=== PATIENT | male | born 1950 | race African-American/Black ===

== ENCOUNTER 2018-01-29 20:43 | Inpatient (IN) | payer MEDICARE, OTHER ==
[~2018-01-29] VITALS: Ht 172.7 cm; Wt 63.7 kg
[2018-01-29] MEDS ORDERED: METHYLPREDNISOLONE SOD SUCC 125 MG/2 ML VIAL IV STA (21:20)
[2018-01-29] MEDS ORDERED: IPRATROPIUM/ALBUTEROL 0.5-3(2.5)MG/3ML NEB HHN ONE (21:30)
[2018-01-29] MEDS ORDERED: LEVOFLOXACIN 750MG PREMIX 150 ML IV ONE (21:30)
[2018-01-29 21:42] LABS: BASOPHILS % 1.5 % (0.0-2.0); EOSINOPHILS % 4.2 % (0.0-5.0); HEMATOCRIT. 32.4 % (42.0-52.0); HEMOGLOBIN. 10.7 g/dL (14.0-18.0); LYMPHOCYTES % 19.8 % (20.0-50.0); MEAN CORPUSCULAR HEMOGLOBIN 27.1 pg (28.0-32.0); MEAN CORPUSCULAR VOLUME 82.2 fL (80.0-94.0); MEAN PLATELET VOLUME 7.6 fl (7.4-10.4); MONOCYTES % 9.2 % (2.0-8.0); NEUTROPHILS % 65.3 % (40.0-76.0); PLATELET 288 x1000/uL (130-400); RED BLOOD CELL COUNT 3.94 mill/uL (4.7-6.1); RED CELL DISTRIBUTION WIDTH 17.3 % (11.6-14.6)
[2018-01-29] MEDS ORDERED: SODIUM CHLORIDE 0.9% 500 ML IV ONE (21:42)
[2018-01-29 21:49] LABS: CHLORIDE 107 mEq/L (98-107)
[2018-01-29 21:54] LABS: AMMONIA 21 uMol/L (<32)
[2018-01-29 21:56] LABS: INR 1.1; PARTIAL THROMBOPLASTIN TIME 26.1 sec (23.4-31.0); PROTHROMBIN TIME 10.9 sec (9.4-11.6)
[2018-01-29 21:57] LABS: CREATINE KINASE 200 IU/L (39-308)
[2018-01-29] MEDS ORDERED: SODIUM BICARBONATE 8.4% 1 MEQ/ML 50ML SYR IV ONE (22:15)
[2018-01-29] MEDS ORDERED: SODIUM POLYSTYRENE SULFONATE 15 G/60 ML BOT PO ONE (22:15)
[2018-01-29] MEDS ORDERED: CALCIUM CHLORIDE 1GM/10ML SYR IV ONE (22:15)
[2018-01-30] VITALS (9 sets, daily range): BP systolic 131–193; BP diastolic 74–103
[2018-01-30] MEDS ORDERED: MAGNESIUM/ALUMINUM HYDROXIDE/SIMETHICONE 30ML UDC PO PRN (00:45)
[2018-01-30] MEDS ORDERED: ACETAMINOPHEN 650MG SUPP PR PRN (00:45)
[2018-01-30] MEDS ORDERED: ONDANSETRON HCL 4MG/2ML VIAL IV PRN (00:45)
[2018-01-30] MEDS ORDERED: HYDROCODONE/ACETAMINOPHEN 5/325MG TABLET PO PRN (00:45)
[2018-01-30] MEDS ORDERED: DIPHENHYDRAMINE 50MG/ML VIAL IV PRN (00:45)
[2018-01-30] MEDS ORDERED: IPRATROPIUM/ALBUTEROL 0.5-3(2.5)MG/3ML NEB INH PRN (00:45)
[2018-01-30] MEDS ORDERED: ACETAMINOPHEN 325MG TABLET PO PRN (00:45)
[2018-01-30] MEDS ORDERED: ACETAMINOPHEN 650MG/20.3ML UDC GT PRN (00:45)
[2018-01-30] MEDS ORDERED: DOCUSATE SODIUM 100MG CAPSULE PO PRN (00:45)
[2018-01-30] MEDS ORDERED: GUAIFENESIN 200MG/10ML SUGAR FREE UDC PO PRN (00:45)
[2018-01-30 06:02] LABS: CLARITY URINE CLEAR (CLEAR); COLOR URINE YELLOW (YELLOW); KETONES URINE NEGATIVE (NEGATIVE); LEUKOCYTE ESTERASE URINE NEGATIVE (NEGATIVE); NITRITE URINE NEGATIVE (NEGATIVE); OCCULT BLOOD URINE NEGATIVE (NEGATIVE); PH URINE 5.5 (4.5-8.0); PROTEIN URINE 3+ (NEGATIVE); SPECIFIC GRAVITY URINE 1.012 (1.005-1.030); UROBILINOGEN URINE 0.2 E.U./dL (0.2-1.0)
[2018-01-30 06:28] LABS: *AMPHETAMINES SCREEN URINE NEGATIVE (NEGATIVE); *BARBITURATES SCREEN URINE NEGATIVE (NEGATIVE); *BENZODIAZEPINES SCREEN URINE NEGATIVE (NEGATIVE); *COCAINE SCREEN URINE NEGATIVE (NEGATIVE); CANNABINOID URINE SCREEN PRESUMTIVE POSITIVE (NEGATIVE); METHADONE URINE SCREEN NEGATIVE (NEGATIVE); OPIATES URINE SCREEN NEGATIVE (NEGATIVE); PHENCYCLIDINE URINE SCREEN NEGATIVE (NEGATIVE)
[2018-01-30] MEDS ORDERED: AMLODIPINE 10MG TABLET PO SCH (09:00)
[2018-01-30 12:14] LABS: HEMATOCRIT. 33.7 % (42.0-52.0); MEAN CORPUSCULAR HEMOGLOBIN 27.1 pg (28.0-32.0); MEAN CORPUSCULAR VOLUME 82.8 fL (80.0-94.0); MEAN PLATELET VOLUME 8.2 fl (7.4-10.4); PLATELET 269 x1000/uL (130-400); RED BLOOD CELL COUNT 4.07 mill/uL (4.7-6.1); RED CELL DISTRIBUTION WIDTH 17.4 % (11.6-14.6)
[2018-01-30 12:19] LABS: CHLORIDE 108 mEq/L (98-107)
[2018-01-30 12:27] LABS: CREATINE KINASE 156 IU/L (39-308)
[2018-01-30 12:29] LABS: CREATINE KINASE MB FRACTION 1.8 ng/mL (0.5-3.6)
[2018-01-30 12:47] LABS: PLATELET ESTIMATE NORMAL
[2018-01-30] MEDS ORDERED: PNEUMOCOCCAL 23-VAL P-SAC VAC 0.5 ML IM ONE (14:15)
[2018-01-30 14:56] LABS: CREATINE KINASE 148 IU/L (39-308)
[2018-01-30 14:57] LABS: CREATINE KINASE MB FRACTION 1.7 ng/mL (0.5-3.6)
[2018-01-30] MEDS ORDERED: SODIUM BICARBONATE 50 MEQ in SODIUM CHLORIDE 0.45% 1,000 ML IV SCH (16:15)
[2018-01-30] MEDS: ENOXAPARIN 30MG/0.3ML SYR SUBCUT SCH (17:37)
[2018-01-30] MEDS: SODIUM CHLORIDE 0.9% INJ 3ML FLUSH IVF SCH (17:38)
[2018-01-30] MEDS: CLONIDINE 0.1MG TABLET PO PRN (17:41)
[2018-01-30] MEDS ORDERED: AMLODIPINE 10MG TABLET PO NR (20:15)
[2018-01-30] MEDS: HYDRALAZINE HCL 50MG TABLET PO SCH (21:00)
[2018-01-31] VITALS (11 sets, daily range): BP systolic 116–166; BP diastolic 61–92
[2018-01-31] MEDS: CLONIDINE 0.1MG TABLET PO PRN (00:33)
[2018-01-31] MEDS: SODIUM CHLORIDE 0.9% INJ 3ML FLUSH IVF SCH ×3 (00:35→21:38)
[2018-01-31] MEDS: HYDRALAZINE HCL 50MG TABLET PO SCH ×3 (05:22→21:16)
[2018-01-31 06:53] LABS: BASOPHILS % 0.4 % (0.0-2.0); EOSINOPHILS % 0.5 % (0.0-5.0); HEMATOCRIT. 31.2 % (42.0-52.0); HEMOGLOBIN. 10.1 g/dL (14.0-18.0); LYMPHOCYTES % 12.9 % (20.0-50.0); MEAN CORPUSCULAR HEMOGLOBIN 26.8 pg (28.0-32.0); MEAN CORPUSCULAR VOLUME 82.8 fL (80.0-94.0); NEUTROPHILS % 76.2 % (40.0-76.0); RED BLOOD CELL COUNT 3.77 mill/uL (4.7-6.1)
[2018-01-31 07:30] LABS: CHLORIDE 108 mEq/L (98-107)
[2018-01-31 07:37] LABS: LDL CHOLESTEROL 86 mg/dL (5-100)
[2018-01-31 07:39] LABS: HDL CHOLESTEROL 46 mg/dL (40-59)
[2018-01-31] MEDS: ENOXAPARIN 30MG/0.3ML SYR SUBCUT SCH (09:22)
[2018-01-31] MEDS: AMLODIPINE 10MG TABLET PO SCH (09:24)
[2018-01-31 10:36] LABS: HEPATITIS B SURFACE ANTIGEN NEGATIVE
[2018-01-31] MEDS: SODIUM BICARBONATE 50 MEQ in SODIUM CHLORIDE 0.45% 1,000 ML IV SCH (12:15)
[2018-01-31] MEDS ORDERED: AMLO10TA80 PO (14:29)
[2018-01-31] MEDS ORDERED: HYDR-4135 PO (14:29)
[2018-01-31] MEDS ORDERED: LINA5TAB MT (14:31)
[2018-01-31] MEDS: LINAGLIPTIN 5MG TABLET PO SCH (15:27)
[2018-02-01] VITALS (12 sets, daily range): BP systolic 116–164; BP diastolic 65–99
[2018-02-01] MEDS: HYDRALAZINE HCL 50MG TABLET PO SCH ×3 (05:41→22:08)
[2018-02-01] MEDS: SODIUM BICARBONATE 50 MEQ in SODIUM CHLORIDE 0.45% 1,000 ML IV SCH ×2 (05:43→22:08)
[2018-02-01] MEDS: SODIUM CHLORIDE 0.9% INJ 3ML FLUSH IVF SCH ×3 (05:44→22:08)
[2018-02-01] MEDS: CLONIDINE 0.1MG TABLET PO PRN (05:49)
[2018-02-01] MEDS: ENOXAPARIN 30MG/0.3ML SYR SUBCUT SCH (08:46)
[2018-02-01] MEDS: AMLODIPINE 10MG TABLET PO SCH (08:46)
[2018-02-01] MEDS: LINAGLIPTIN 5MG TABLET PO SCH (08:46)
[2018-02-01 12:32] LABS: EOSINOPHILS % 3.6 % (0.0-5.0); HEMATOCRIT. 31.4 % (42.0-52.0); HEMOGLOBIN. 10.2 g/dL (14.0-18.0); LYMPHOCYTES % 21.1 % (20.0-50.0); MEAN CORPUSCULAR HEMOGLOBIN 27.1 pg (28.0-32.0); MEAN CORPUSCULAR VOLUME 83.4 fL (80.0-94.0); MEAN PLATELET VOLUME 8.2 fl (7.4-10.4); MONOCYTES % 9.8 % (2.0-8.0); NEUTROPHILS % 64.5 % (40.0-76.0); PLATELET 189 x1000/uL (130-400); RED BLOOD CELL COUNT 3.76 mill/uL (4.7-6.1); RED CELL DISTRIBUTION WIDTH 17.3 % (11.6-14.6)
[2018-02-01 12:45] LABS: CHLORIDE 105 mEq/L (98-107)
[2018-02-01 15:54] LABS: BG BASE EXCESS -4.6 mmol/L (-2.0-2.0); BG CARBOXYHEMOGLOBIN 0.5 % (0.5-1.5); BG FRACTION INSPIRED OXYGEN 21; BG HCO3 ACT 18.9 mmol/L (22.0-26.0); BG METHEMOGLOBIN 0.2 % (0.0-1.5); BG OXYHEMOGLOBIN 95.3 % (94.0-97.0); BG PCO2 29.8 mmHg (35.0-45.0); BG PO2 87.8 mmHg (75.0-100.0); BG SAMPLE SITE RIGHT BRACHIAL; BG VENT MODE ROOM AIR
[2018-02-02] VITALS (7 sets, daily range): BP systolic 148–169; BP diastolic 87–95
[2018-02-02] MEDS: CLONIDINE 0.1MG TABLET PO PRN (01:53)
[2018-02-02] MEDS: SODIUM CHLORIDE 0.9% INJ 3ML FLUSH IVF SCH (06:41)
[2018-02-02] MEDS: HYDRALAZINE HCL 50MG TABLET PO SCH ×2 (06:41→13:40)
[2018-02-02 06:52] LABS: BASOPHILS % 0.9 % (0.0-2.0); EOSINOPHILS % 5.1 % (0.0-5.0); HEMATOCRIT. 32.3 % (42.0-52.0); HEMOGLOBIN. 10.6 g/dL (14.0-18.0); LYMPHOCYTES % 20.1 % (20.0-50.0); MEAN CORPUSCULAR HEMOGLOBIN 27.1 pg (28.0-32.0); MEAN CORPUSCULAR VOLUME 82.7 fL (80.0-94.0); MEAN PLATELET VOLUME 7.9 fl (7.4-10.4); MONOCYTES % 14.1 % (2.0-8.0); NEUTROPHILS % 59.8 % (40.0-76.0); PLATELET 239 x1000/uL (130-400); RED CELL DISTRIBUTION WIDTH 17.6 % (11.6-14.6)
[2018-02-02 07:11] LABS: CHLORIDE 107 mEq/L (98-107)
[2018-02-02 07:45] LABS: PHOSPHORUS 4.9 mg/dL (2.5-4.9)
[2018-02-02] MEDS: LINAGLIPTIN 5MG TABLET PO SCH (08:07)
[2018-02-02] MEDS: AMLODIPINE 10MG TABLET PO SCH (08:07)
[2018-02-02] MEDS: ENOXAPARIN 30MG/0.3ML SYR SUBCUT SCH (08:07)
[2018-02-02] MEDS ORDERED: SODIUM CHLORIDE 0.45% 1,000 ML IV SCH (09:31)
[2018-02-02] MEDS: CLONIDINE 0.1MG TABLET PO SCH ×2 (10:04→13:41)
[2018-02-02] MEDS ORDERED: MAGNESIUM 2 G PREMIX 50 ML IV NR (10:30)
[2018-02-02 16:20] LABS: CREATININE URINE (RAW) 48.3 mg/dl
== END 2018-02-02 13:40 | disposition short-term general hospital (02) | DRG 133 ==
LOC: ER 20:43 → EDBEDREQ 01-30 00:31 → EDBEDREQSVC 01-30 00:31 → EDBEDREQTM 01-30 00:31 → ENRESERV 01-30 07:30 → 5EST 01-30 08:16
PROVIDERS: ADMIT Family Medicine; ATTEND Family Medicine
DX: J96.00 Acute respiratory failure, unspecified whether with hypoxia or hypercapnia (principal); N17.0 Acute kidney failure with tubular necrosis; I13.2 Hypertensive heart and chronic kidney disease with heart failure and with stage 5 chronic kidney disease, or end stage renal disease; G93.41 Metabolic encephalopathy; N18.6 End stage renal disease; E87.2 Acidosis; E11.22 Type 2 diabetes mellitus with diabetic chronic kidney disease; I27.20 Pulmonary hypertension, unspecified; I07.1 Rheumatic tricuspid insufficiency; E87.5 Hyperkalemia; F17.210 Nicotine dependence, cigarettes, uncomplicated; I50.9 Heart failure, unspecified; K21.9 Gastro-esophageal reflux disease without esophagitis; Z53.29 Procedure and treatment not carried out because of patient's decision for other reasons; I25.10 Atherosclerotic heart disease of native coronary artery without angina pectoris; E78.5 Hyperlipidemia, unspecified; B19.20 Unspecified viral hepatitis C without hepatic coma; Z99.2 Dependence on renal dialysis; Z82.49 Family history of ischemic heart disease and other diseases of the circulatory system; Z86.61 Personal history of infections of the central nervous system
CPT/HCPCS: 36415; 36600; 71045; 76770; 78582; 80048; 80053; 80061; 80305; 81003; 82140; 82375; 82550; 82553; 82575; 82805; 82962; 83036; 83605; 83690; 83735; 83880; 84100; 84132; 84484; 85025; 85379; 85610; 85730; 86803; 87040; 87340; 93005; 93306; 94640; 97162; A9558; J1650; J1956; J2930; J3475; J3490; J7030; J7040; J7620

== ENCOUNTER 2018-07-09 18:03 | Inpatient (IN) | payer MEDICARE, OTHER ==
[~2018-07-09] VITALS: Ht 172.7 cm; Wt 62.9 kg
[~2018-07-09 18:03] MED LIST: AMLO10TA80 PO; HYDR-4135 PO; LINA5TAB MT
[2018-07-09] MEDS ORDERED: ASPIRIN 81MG TABLET PO ONE (19:15)
[2018-07-09 20:05] LABS: BASOPHILS % 1.1 % (0.0-2.0); EOSINOPHILS % 7.4 % (0.0-5.0); HEMATOCRIT. 27.4 % (42.0-52.0); LYMPHOCYTES % 17.4 % (20.0-50.0); MEAN CORPUSCULAR HEMOGLOBIN 26.8 pg (28.0-32.0); MEAN CORPUSCULAR VOLUME 81.7 fL (80.0-94.0); MEAN PLATELET VOLUME 8.1 fl (7.4-10.4); MONOCYTES % 10.8 % (2.0-8.0); NEUTROPHILS % 63.3 % (40.0-76.0); PLATELET 237 x1000/uL (130-400); RED BLOOD CELL COUNT 3.35 mill/uL (4.7-6.1); RED CELL DISTRIBUTION WIDTH 17.3 % (11.6-14.6)
[2018-07-09 20:11] LABS: CHLORIDE 114 mEq/L (98-107)
[2018-07-10] MEDS ORDERED: ACETAMINOPHEN 650MG/20.3ML UDC GT PRN
[2018-07-10] MEDS ORDERED: DOCUSATE SODIUM 100MG CAPSULE PO PRN
[2018-07-10] MEDS ORDERED: ACETAMINOPHEN 650MG SUPP PR PRN
[2018-07-10] MEDS ORDERED: DIPHENHYDRAMINE 50MG/ML VIAL IV PRN
[2018-07-10] MEDS ORDERED: ACETAMINOPHEN 325MG TABLET PO PRN
[2018-07-10] MEDS ORDERED: ONDANSETRON HCL 4MG/2ML INJ IV PRN
[2018-07-10 00:35] VITALS: BP 168/98
[2018-07-10] MEDS ORDERED: QUET25TA MT (00:56)
[2018-07-10] MEDS ORDERED: BUPR75TA8 MT (00:56)
[2018-07-10] MEDS: HYDROCODONE/ACETAMINOPHEN 5/325MG TABLET PO PRN ×2 (01:17→23:24)
[2018-07-10] MEDS: CLONIDINE 0.1MG TABLET PO PRN ×3 (01:17→20:28)
[2018-07-10] MEDS ORDERED: SODIUM POLYSTYRENE SULFONATE 15 G/60 ML BOT PO NR ×2 (02:00→12:30)
[2018-07-10 04:00] VITALS: BP 168/70
[2018-07-10 06:30] LABS: BASOPHILS % 1.1 % (0.0-2.0); EOSINOPHILS % 7.3 % (0.0-5.0); HEMATOCRIT. 26.3 % (42.0-52.0); HEMOGLOBIN. 8.6 g/dL (14.0-18.0); LYMPHOCYTES % 20.4 % (20.0-50.0); MEAN CORPUSCULAR HEMOGLOBIN 26.6 pg (28.0-32.0); MEAN CORPUSCULAR VOLUME 81.8 fL (80.0-94.0); MEAN PLATELET VOLUME 8.1 fl (7.4-10.4); MONOCYTES % 11.1 % (2.0-8.0); NEUTROPHILS % 60.1 % (40.0-76.0); PLATELET 216 x1000/uL (130-400); RED BLOOD CELL COUNT 3.22 mill/uL (4.7-6.1)
[2018-07-10 06:43] LABS: CHLORIDE 115 mEq/L (98-107)
[2018-07-10 06:52] LABS: HDL CHOLESTEROL 49 mg/dL (40-59)
[2018-07-10 06:56] LABS: LDL CHOLESTEROL 109 mg/dL (5-100)
[2018-07-10 07:02] LABS: CREATINE KINASE MB FRACTION 4.5 ng/mL (0.5-3.6)
[2018-07-10 07:09] LABS: CREATINE KINASE 1143 IU/L (39-308)
[2018-07-10 08:15] VITALS: BP 190/111
[2018-07-10] MEDS: ASPIRIN 81MG TABLET PO SCH (10:09)
[2018-07-10 10:31] LABS: T4 FREE 0.97 ng/dL (0.76-1.46)
[2018-07-10 12:10] VITALS: BP 185/98
[2018-07-10 16:58] VITALS: BP 196/116
[2018-07-10] MEDS: CITRIC ACID/SODIUM CITRATE SOLN 30ML UDC PO SCH (17:27)
[2018-07-10] MEDS: FUROSEMIDE 40MG/4ML VIAL IVP SCH (17:28)
[2018-07-10 17:58] LABS: CREATINE KINASE MB FRACTION 3.3 ng/mL (0.5-3.6)
[2018-07-10 18:11] LABS: HEPATITIS B SURFACE ANTIGEN NEGATIVE
[2018-07-10 18:24] LABS: PARTIAL THROMBOPLASTIN TIME 28.1 sec (23.4-31.0); PROTHROMBIN TIME 10.4 sec (9.1-11.1)
[2018-07-10 18:40] LABS: HEPATITIS A AB IGM NEGATIVE (NEGATIVE)
[2018-07-10 20:00] VITALS: BP 207/110
[2018-07-10] MEDS ORDERED: HYDRALAZINE 20MG/ML VIAL IV NR (23:30)
[2018-07-10] MEDS ORDERED: AMLODIPINE 10MG TABLET PO NR (23:30)
[2018-07-11] VITALS (8 sets, daily range): BP systolic 144–186; BP diastolic 80–99
[2018-07-11] MEDS: FUROSEMIDE 40MG/4ML VIAL IVP SCH ×2 (06:22→16:55)
[2018-07-11 06:48] LABS: INR 1.1; PARTIAL THROMBOPLASTIN TIME 27.3 sec (23.4-31.0); PROTHROMBIN TIME 10.7 sec (9.1-11.1)
[2018-07-11] MEDS: CITRIC ACID/SODIUM CITRATE SOLN 30ML UDC PO SCH ×3 (08:09→16:54)
[2018-07-11] MEDS: CLONIDINE 0.1MG TABLET PO PRN ×2 (08:10→20:26)
[2018-07-11] MEDS: ASPIRIN 81MG TABLET PO SCH (08:10)
[2018-07-11] MEDS: HYDROCODONE/ACETAMINOPHEN 5/325MG TABLET PO PRN ×3 (08:11→17:40)
[2018-07-11] MEDS ORDERED: LIDOCAINE HCL 1% 20ML VIAL (Pyxis) INJ ONE (08:53)
[2018-07-11 11:48] LABS: BASOPHILS % 1.9 % (0.0-2.0); HEMATOCRIT. 28.1 % (42.0-52.0); HEMOGLOBIN. 9.2 g/dL (14.0-18.0); MEAN CORPUSCULAR HEMOGLOBIN 26.5 pg (28.0-32.0); MEAN CORPUSCULAR VOLUME 80.9 fL (80.0-94.0); MEAN PLATELET VOLUME 8.1 fl (7.4-10.4); MONOCYTES % 12.7 % (2.0-8.0); NEUTROPHILS % 56.4 % (40.0-76.0); PLATELET 242 x1000/uL (130-400); RED BLOOD CELL COUNT 3.47 mill/uL (4.7-6.1); RED CELL DISTRIBUTION WIDTH 17.1 % (11.6-14.6)
[2018-07-12] VITALS: BP 160/84
[2018-07-12 04:00] VITALS: BP 184/95
[2018-07-12] MEDS: CLONIDINE 0.1MG TABLET PO PRN (05:06)
[2018-07-12] MEDS: FUROSEMIDE 40MG/4ML VIAL IVP SCH ×2 (06:30→17:47)
[2018-07-12 08:00] VITALS: BP 145/68
[2018-07-12 08:16] LABS: HEMATOCRIT. 29.6 % (42.0-52.0); HEMOGLOBIN. 9.8 g/dL (14.0-18.0); MEAN CORPUSCULAR HEMOGLOBIN 26.5 pg (28.0-32.0); MEAN CORPUSCULAR VOLUME 80.4 fL (80.0-94.0); PLATELET 228 x1000/uL (130-400); RED BLOOD CELL COUNT 3.69 mill/uL (4.7-6.1); RED CELL DISTRIBUTION WIDTH 17.1 % (11.6-14.6)
[2018-07-12] MEDS: ASPIRIN 81MG TABLET PO SCH (08:23)
[2018-07-12] MEDS: CITRIC ACID/SODIUM CITRATE SOLN 30ML UDC PO SCH ×3 (08:37→17:47)
[2018-07-12 10:15] LABS: PLATELET ESTIMATE NORMAL
[2018-07-12 12:00] VITALS: BP 153/92
[2018-07-12 20:00] VITALS: BP 157/82
[2018-07-13] VITALS (16 sets, daily range): BP systolic 118–181; BP diastolic 70–103
[2018-07-13] MEDS: FUROSEMIDE 40MG/4ML VIAL IVP SCH (06:30)
[2018-07-13 07:26] LABS: BASOPHILS % 1.6 % (0.0-2.0); EOSINOPHILS % 7.6 % (0.0-5.0); HEMATOCRIT. 30.2 % (42.0-52.0); HEMOGLOBIN. 9.8 g/dL (14.0-18.0); LYMPHOCYTES % 20.4 % (20.0-50.0); MEAN CORPUSCULAR HEMOGLOBIN 26.6 pg (28.0-32.0); MEAN CORPUSCULAR VOLUME 81.4 fL (80.0-94.0); MEAN PLATELET VOLUME 8.2 fl (7.4-10.4); MONOCYTES % 14.5 % (2.0-8.0); NEUTROPHILS % 55.9 % (40.0-76.0); PLATELET 221 x1000/uL (130-400); RED BLOOD CELL COUNT 3.71 mill/uL (4.7-6.1); RED CELL DISTRIBUTION WIDTH 16.9 % (11.6-14.6)
[2018-07-13 07:30] LABS: INR 1.1; PARTIAL THROMBOPLASTIN TIME 28.8 sec (23.4-31.0); PROTHROMBIN TIME 10.9 sec (9.1-11.1)
[2018-07-13] MEDS: CLONIDINE 0.1MG TABLET PO PRN (08:23)
[2018-07-13] MEDS: CITRIC ACID/SODIUM CITRATE SOLN 30ML UDC PO SCH ×2 (08:24→12:16)
[2018-07-13] MEDS: ASPIRIN 81MG TABLET PO SCH (08:24)
[2018-07-13 09:06] LABS: COMPLEMENT C3 93 mg/dL (82-167)
[2018-07-13] MEDS ORDERED: CEFAZOLIN 1000MG PREMIX 50 ML IV ONE ×2 (09:45→10:14)
[2018-07-13] MEDS ORDERED: LIDOCAINE HCL 1% 20ML VIAL (Pyxis) INJ ONE (09:57)
[2018-07-13] MEDS ORDERED: SODIUM BICARBONATE 4% (2.4MEQ) 5ML VIAL IV ONE (09:57)
[2018-07-13] MEDS ORDERED: FENTANYL CITRATE/PF 50MCG/ML 2ML VIAL ONE (10:14)
[2018-07-13] MEDS ORDERED: FENTANYL CITRATE/PF 50MCG/ML 2ML VIAL IV ONE (10:45)
[2018-07-13] MEDS ORDERED: LISINOPRIL 10MG TABLET PO SCH (12:45)
[2018-07-13] MEDS ORDERED: AMLODIPINE 10MG TABLET PO SCH (12:45)
[2018-07-13] MEDS ORDERED: ASPI-1160 PO (12:50)
[2018-07-13] MEDS ORDERED: LISI10TA5 PO (12:50)
[2018-07-13] MEDS ORDERED: HYDRALAZINE HCL 50MG TABLET PO SCH (14:00)
[2018-07-13] MEDS ORDERED: HEPARIN SODIUM 1,000 UNIT/1ML VIAL IV NR (14:45)
[2018-07-14 04:17] LABS: ANTI-NUCLEAR ANTIBODIES DIRECT Positive (Negative)
== END 2018-07-13 17:20 | disposition home health service (06) | DRG 194 ==
LOC: ER 18:17 → 8WST 22:33 → EDBEDREQ 22:51 → EDBEDREQTM 22:51 → ENRESERV 23:27
PROVIDERS: ADMIT Family Medicine; ATTEND Family Medicine
PROC: 5A1D70Z Performance of Urinary Filtration, Intermittent, Less than 6 Hours Per Day (ICD-10-PCS; principal; 2018-07-10)
PROC: 02HV33Z Insertion of Infusion Device into Superior Vena Cava, Percutaneous Approach (ICD-10-PCS; 2018-07-11)
PROC: B5181ZA Fluoroscopy of Superior Vena Cava using Low Osmolar Contrast, Guidance (ICD-10-PCS; 2018-07-11)
PROC: 5A1D70Z Performance of Urinary Filtration, Intermittent, Less than 6 Hours Per Day (ICD-10-PCS; 2018-07-11)
PROC: B548ZZA Ultrasonography of Superior Vena Cava, Guidance (ICD-10-PCS; 2018-07-11)
PROC: 5A1D70Z Performance of Urinary Filtration, Intermittent, Less than 6 Hours Per Day (ICD-10-PCS; 2018-07-12)
PROC: 0JH63XZ Insertion of Tunneled Vascular Access Device into Chest Subcutaneous Tissue and Fascia, Percutaneous Approach (ICD-10-PCS; 2018-07-13)
PROC: 02HV33Z Insertion of Infusion Device into Superior Vena Cava, Percutaneous Approach (ICD-10-PCS; 2018-07-13)
PROC: B5181ZA Fluoroscopy of Superior Vena Cava using Low Osmolar Contrast, Guidance (ICD-10-PCS; 2018-07-13)
PROC: 05PY33Z Removal of Infusion Device from Upper Vein, Percutaneous Approach (ICD-10-PCS; 2018-07-13)
DX: I13.2 Hypertensive heart and chronic kidney disease with heart failure and with stage 5 chronic kidney disease, or end stage renal disease (principal); E44.0 Moderate protein-calorie malnutrition; E11.22 Type 2 diabetes mellitus with diabetic chronic kidney disease; E87.2 Acidosis; N18.6 End stage renal disease; I27.20 Pulmonary hypertension, unspecified; E11.649 Type 2 diabetes mellitus with hypoglycemia without coma; B19.20 Unspecified viral hepatitis C without hepatic coma; E87.5 Hyperkalemia; D63.8 Anemia in other chronic diseases classified elsewhere; E78.5 Hyperlipidemia, unspecified; F17.200 Nicotine dependence, unspecified, uncomplicated; I25.10 Atherosclerotic heart disease of native coronary artery without angina pectoris; I34.0 Nonrheumatic mitral (valve) insufficiency; F14.90 Cocaine use, unspecified, uncomplicated; Z53.20 Procedure and treatment not carried out because of patient's decision for unspecified reasons; Z68.21 Body mass index [BMI] 21.0-21.9, adult; I25.2 Old myocardial infarction; Z99.2 Dependence on renal dialysis; I50.33 Acute on chronic diastolic (congestive) heart failure
CPT/HCPCS: 36415; 36556; 36558; 36589; 71045; 76770; 76937; 77001; 78582; 80048; 80061; 82550; 82553; 83036; 83880; 84439; 84443; 84484; 85379; 86038; 86160; 86705; 86709; 86803; 87340; 93005; 93306; 93970; 99152; 99153; 99285; A9558; C1750; C1752; C1769; J0360; J0690; J1642; J1644; J1940; J2405; J3010; J3490; J7040; J7050; G0500

== ENCOUNTER 2018-08-06 00:26 | Inpatient (IN) | payer MEDICARE, OTHER ==
[2018-08-06] VITALS (8 sets, daily range): BP systolic 148–206; BP diastolic 86–114
[~2018-08-06] VITALS: Ht 170.2 cm; Wt 66.7 kg
[~2018-08-06 00:26] MED LIST changes: +ASPI-1160 PO; +BUPR75TA8 PO; +LISI10TA5 PO; +QUET25TA PO
[2018-08-06 00:58] LABS: CHLORIDE 109 mEq/L (98-107)
[2018-08-06 01:16] LABS: BASOPHILS % 1.2 % (0.0-2.0); EOSINOPHILS % 4.4 % (0.0-5.0); HEMATOCRIT. 26.3 % (42.0-52.0); HEMOGLOBIN. 8.5 g/dL (14.0-18.0); LYMPHOCYTES % 12.8 % (20.0-50.0); MEAN CORPUSCULAR HEMOGLOBIN 27.3 pg (28.0-32.0); MEAN CORPUSCULAR VOLUME 84.2 fL (80.0-94.0); MEAN PLATELET VOLUME 8.4 fl (7.4-10.4); MONOCYTES % 9.7 % (2.0-8.0); NEUTROPHILS % 71.9 % (40.0-76.0); PLATELET 258 x1000/uL (130-400); RED BLOOD CELL COUNT 3.13 mill/uL (4.7-6.1); RED CELL DISTRIBUTION WIDTH 16.8 % (11.6-14.6)
[2018-08-06] MEDS ORDERED: FUROSEMIDE 100MG/10ML VIAL IVP NR (01:30)
[2018-08-06] MEDS ORDERED: HYDRALAZINE 20MG/ML VIAL IV ONE (06:45)
[2018-08-06] MEDS ORDERED: DEXTROSE 50% WATER 50ML SYRINGE IV ONE (07:30)
[2018-08-06] MEDS ORDERED: MEDICATION NOT ON FORMULARY EA (Lisinopril 10 MG) PO SCH (11:30)
[2018-08-06] MEDS: LISINOPRIL 10MG TABLET PO SCH (12:14)
[2018-08-06] MEDS: HYDRALAZINE HCL 50MG TABLET PO SCH ×2 (12:14→23:05)
[2018-08-06] MEDS: AMLODIPINE 10MG TABLET PO SCH (12:14)
[2018-08-06] MEDS ORDERED: HYDRALAZINE HCL 50 MG PO SCH (14:00)
[2018-08-06] MEDS ORDERED: BUPROPION HCL 75MG TABLET PO ONE (14:30)
[2018-08-06] MEDS: IPRATROPIUM/ALBUTEROL 0.5-3(2.5)MG/3ML NEB HHN SCH ×2 (15:08→21:00)
[2018-08-06] MEDS: LINAGLIPTIN 5MG TABLET PO SCH (15:39)
[2018-08-06] MEDS ORDERED: ONDANSETRON HCL 4MG/2ML INJ IV PRN (17:00)
[2018-08-06] MEDS ORDERED: IPRATROPIUM/ALBUTEROL 0.5-3(2.5)MG/3ML NEB INH PRN (17:00)
[2018-08-06] MEDS ORDERED: HYDROCODONE/ACETAMINOPHEN 5/325MG TABLET PO PRN (17:00)
[2018-08-06] MEDS ORDERED: ACETAMINOPHEN 325MG TABLET PO PRN (17:00)
[2018-08-06] MEDS ORDERED: CLONIDINE 0.1MG TABLET PO PRN (17:00)
[2018-08-06] MEDS ORDERED: DOCUSATE SODIUM 100MG CAPSULE PO PRN (17:00)
[2018-08-06] MEDS: QUETIAPINE FUMARATE 25MG TABLET PO SCH (23:03)
[2018-08-07] VITALS (12 sets, daily range): BP systolic 125–179; BP diastolic 63–103
[2018-08-07] MEDS: HYDRALAZINE HCL 50MG TABLET PO SCH ×3 (06:40→22:15)
[2018-08-07 07:54] LABS: EOSINOPHILS % 4.4 % (0.0-5.0); HEMATOCRIT. 27.6 % (42.0-52.0); HEMOGLOBIN. 9.1 g/dL (14.0-18.0); LYMPHOCYTES % 17.2 % (20.0-50.0); MEAN CORPUSCULAR HEMOGLOBIN 27.6 pg (28.0-32.0); MEAN CORPUSCULAR VOLUME 83.3 fL (80.0-94.0); MEAN PLATELET VOLUME 8.4 fl (7.4-10.4); MONOCYTES % 11.4 % (2.0-8.0); PLATELET 245 x1000/uL (130-400); RED BLOOD CELL COUNT 3.32 mill/uL (4.7-6.1); RED CELL DISTRIBUTION WIDTH 16.9 % (11.6-14.6)
[2018-08-07] MEDS: LISINOPRIL 10MG TABLET PO SCH (09:35)
[2018-08-07] MEDS: LINAGLIPTIN 5MG TABLET PO SCH (09:35)
[2018-08-07] MEDS: ASPIRIN 81MG TABLET PO SCH (09:36)
[2018-08-07] MEDS: AMLODIPINE 10MG TABLET PO SCH (09:36)
[2018-08-07] MEDS: BUPROPION HCL 75MG TABLET PO SCH (09:37)
[2018-08-07 10:28] LABS: PHOSPHORUS 3.2 mg/dL (2.5-4.9)
[2018-08-07] MEDS: IPRATROPIUM/ALBUTEROL 0.5-3(2.5)MG/3ML NEB HHN SCH ×3 (12:53→20:06)
[2018-08-07] MEDS ORDERED: VANCOMYCIN 1250MG in DEXTROSE 5% WATER 250ML IV NR (13:00)
[2018-08-07] MEDS: PIPERACILLIN/TAZ 2.25G PREMIX 50 ML IV SCH ×2 (14:29→22:16)
[2018-08-07] MEDS ORDERED: DEXTROSE 50% WATER 50ML SYRINGE IV PRN (21:15)
[2018-08-07] MEDS: QUETIAPINE FUMARATE 25MG TABLET PO SCH (22:15)
[2018-08-08] VITALS (11 sets, daily range): BP systolic 123–188; BP diastolic 65–85
[2018-08-08] MEDS: HYDRALAZINE HCL 50MG TABLET PO SCH (04:53)
[2018-08-08] MEDS: PIPERACILLIN/TAZ 2.25G PREMIX 50 ML IV SCH ×2 (04:53→12:30)
[2018-08-08] MEDS: BLOOD SUGAR DIAGNOSTIC STRIP TEST SCH ×3 (07:34→17:46)
[2018-08-08] MEDS: INSULIN LISPRO 100 UNITS/ML SUBCUT SCH ×3 (08:00→17:46)
[2018-08-08 08:16] LABS: HEMOGLOBIN. 9.6 g/dL (14.0-18.0); MEAN CORPUSCULAR HEMOGLOBIN 26.8 pg (28.0-32.0); MEAN CORPUSCULAR VOLUME 83.6 fL (80.0-94.0); MEAN PLATELET VOLUME 8.7 fl (7.4-10.4); PLATELET 279 x1000/uL (130-400); RED BLOOD CELL COUNT 3.59 mill/uL (4.7-6.1); RED CELL DISTRIBUTION WIDTH 16.7 % (11.6-14.6)
[2018-08-08 08:31] LABS: CREATINE KINASE MB FRACTION 1.6 ng/mL (0.5-3.6)
[2018-08-08] MEDS: BUPROPION HCL 75MG TABLET PO SCH (08:33)
[2018-08-08] MEDS: AMLODIPINE 10MG TABLET PO SCH (08:33)
[2018-08-08] MEDS: LISINOPRIL 10MG TABLET PO SCH (08:34)
[2018-08-08] MEDS: ASPIRIN 81MG TABLET PO SCH (08:34)
[2018-08-08] MEDS: IPRATROPIUM/ALBUTEROL 0.5-3(2.5)MG/3ML NEB HHN SCH ×3 (09:20→16:51)
[2018-08-08 10:17] LABS: PLATELET ESTIMATE NORMAL
[2018-08-08] MEDS ORDERED: VANCOMYCIN 750 MG PREMIX 150 ML IV SCH (11:00)
[2018-08-08] MEDS: LINAGLIPTIN 5MG TABLET PO SCH (11:23)
[2018-08-08] MEDS ORDERED: HYDRALAZINE HCL 100MG TABLET PO SCH (14:00)
[2018-08-08] MEDS ORDERED: LISINOPRIL 10MG TABLET PO SCH (21:00)
[2018-08-09] MEDS ORDERED: EPOETIN ALFA 10000UNITS/ML VIAL SUBCUT SCH (21:00)
== END 2018-08-08 18:49 | disposition home or self-care (01) | DRG 720 ==
LOC: ER 00:26 → 5EST 01:33 → EDBEDREQSVC 01:35 → EDBEDREQ 01:35 → EDBEDREQTM 01:35 → ENRESERV 07:00 → 5EST 20:59
PROVIDERS: ADMIT Internal Medicine; ATTEND Internal Medicine
PROC: 5A1D70Z Performance of Urinary Filtration, Intermittent, Less than 6 Hours Per Day (ICD-10-PCS; principal; 2018-08-06)
PROC: 5A09357 Assistance with Respiratory Ventilation, Less than 24 Consecutive Hours, Continuous Positive Airway Pressure (ICD-10-PCS; 2018-08-06)
PROC: 5A09357 Assistance with Respiratory Ventilation, Less than 24 Consecutive Hours, Continuous Positive Airway Pressure (ICD-10-PCS; 2018-08-08)
DX: A41.9 Sepsis, unspecified organism (principal); J96.00 Acute respiratory failure, unspecified whether with hypoxia or hypercapnia; I13.2 Hypertensive heart and chronic kidney disease with heart failure and with stage 5 chronic kidney disease, or end stage renal disease; E11.22 Type 2 diabetes mellitus with diabetic chronic kidney disease; I27.20 Pulmonary hypertension, unspecified; E44.1 Mild protein-calorie malnutrition; N18.6 End stage renal disease; I50.33 Acute on chronic diastolic (congestive) heart failure; B19.20 Unspecified viral hepatitis C without hepatic coma; D63.8 Anemia in other chronic diseases classified elsewhere; E78.5 Hyperlipidemia, unspecified; E78.00 Pure hypercholesterolemia, unspecified; F17.210 Nicotine dependence, cigarettes, uncomplicated; F32.9 Major depressive disorder, single episode, unspecified; J44.9 Chronic obstructive pulmonary disease, unspecified; Z79.84 Long term (current) use of oral hypoglycemic drugs; Z99.2 Dependence on renal dialysis; Z83.3 Family history of diabetes mellitus; Z84.1 Family history of disorders of kidney and ureter; Z82.49 Family history of ischemic heart disease and other diseases of the circulatory system; Z68.23 Body mass index [BMI] 23.0-23.9, adult
CPT/HCPCS: 36415; 71045; 80048; 80051; 80061; 80202; 82550; 82553; 82962; 83605; 83735; 83880; 84100; 84484; 85379; 87077; 87186; 93005; 93970; 94640; 94660; 96374; 96375; 99285; J0360; J1940; J2543; J3370; J7040; J7050; J7060; J7620

== ENCOUNTER 2018-08-09 17:51 | Inpatient (IN) | payer MEDICARE, OTHER ==
[~2018-08-09] VITALS: Ht 172.7 cm; Wt 64.4 kg
[2018-08-09] MEDS ORDERED: IPRATROPIUM/ALBUTEROL 0.5-3(2.5)MG/3ML NEB HHN ONE (19:45)
[2018-08-09 20:51] LABS: HEMATOCRIT. 27.7 % (42.0-52.0); HEMOGLOBIN. 8.9 g/dL (14.0-18.0); MEAN CORPUSCULAR HEMOGLOBIN 27.5 pg (28.0-32.0); MEAN CORPUSCULAR VOLUME 85.3 fL (80.0-94.0); MEAN PLATELET VOLUME 7.8 fl (7.4-10.4); PLATELET 268 x1000/uL (130-400); RED BLOOD CELL COUNT 3.25 mill/uL (4.7-6.1); RED CELL DISTRIBUTION WIDTH 16.9 % (11.6-14.6)
[2018-08-09 20:52] LABS: CHLORIDE 110 mEq/L (98-107)
[2018-08-09 20:54] LABS: PARTIAL THROMBOPLASTIN TIME 27.1 sec (23.4-31.0); PROTHROMBIN TIME 10.4 sec (9.1-11.1)
[2018-08-09 20:56] LABS: ETHANOL BLOOD < 10 mg/dL
[2018-08-09] MEDS ORDERED: SODIUM POLYSTYRENE SULFONATE 15 G/60 ML BOT PO ONE (22:00)
[2018-08-09 22:12] LABS: PLATELET ESTIMATE NORMAL
[2018-08-09 23:30] VITALS: BP 151/79
[2018-08-09] MEDS ORDERED: CLONIDINE 0.1MG TABLET PO PRN (23:30)
[2018-08-09] MEDS ORDERED: HYDROCODONE/ACETAMINOPHEN 5/325MG TABLET PO PRN (23:30)
[2018-08-09] MEDS ORDERED: DOCUSATE SODIUM 100MG CAPSULE PO PRN (23:30)
[2018-08-09] MEDS ORDERED: IPRATROPIUM/ALBUTEROL 0.5-3(2.5)MG/3ML NEB INH PRN (23:30)
[2018-08-09] MEDS ORDERED: ONDANSETRON HCL 4MG/2ML INJ IV PRN (23:30)
[2018-08-09] MEDS ORDERED: ACETAMINOPHEN 325MG TABLET PO PRN (23:30)
[2018-08-10 04:00] VITALS: BP 158/71
[2018-08-10 06:35] LABS: HEMATOCRIT. 30.7 % (42.0-52.0); MEAN CORPUSCULAR HEMOGLOBIN 27.4 pg (28.0-32.0); MEAN CORPUSCULAR VOLUME 84.3 fL (80.0-94.0); MEAN PLATELET VOLUME 8.2 fl (7.4-10.4); PLATELET 304 x1000/uL (130-400); RED BLOOD CELL COUNT 3.64 mill/uL (4.7-6.1); RED CELL DISTRIBUTION WIDTH 16.2 % (11.6-14.6)
[2018-08-10 06:54] LABS: CREATINE KINASE MB FRACTION 2.3 ng/mL (0.5-3.6)
[2018-08-10 08:00] VITALS: BP 139/78
[2018-08-10] MEDS ORDERED: DEXTROSE 50% WATER 50ML SYRINGE IV PRN (11:45)
[2018-08-10 11:46] VITALS: BP 137/82
[2018-08-10] MEDS: BLOOD SUGAR DIAGNOSTIC STRIP TEST SCH ×3 (11:47→20:59)
[2018-08-10] MEDS: INSULIN LISPRO 100 UNITS/ML SUBCUT SCH ×3 (11:47→21:15)
[2018-08-10] MEDS: AMLODIPINE 10MG TABLET PO SCH (11:57)
[2018-08-10] MEDS: LINAGLIPTIN 5MG TABLET PO SCH (11:57)
[2018-08-10] MEDS: HYDRALAZINE HCL 50MG TABLET PO SCH ×2 (13:58→21:16)
[2018-08-10 14:26] LABS: PLATELET ESTIMATE NORMAL
[2018-08-10] MEDS: BUPROPION HCL 75MG TABLET PO SCH (15:00)
[2018-08-10 15:41] LABS: CREATINE KINASE MB FRACTION 1.5 ng/mL (0.5-3.6)
[2018-08-10 16:00] VITALS: BP 153/84
[2018-08-10 20:00] VITALS: BP 152/92
[2018-08-10] MEDS ORDERED: ATORVASTATIN CALCIUM 20MG TABLET PO SCH (21:00)
[2018-08-10] MEDS ORDERED: QUETIAPINE FUMARATE 25MG TABLET PO SCH (21:00)
[2018-08-11] VITALS (8 sets, daily range): BP systolic 132–183; BP diastolic 67–95
[2018-08-11] MEDS: HYDRALAZINE HCL 50MG TABLET PO SCH (06:00)
[2018-08-11 06:22] LABS: HEMATOCRIT. 29.2 % (42.0-52.0); HEMOGLOBIN. 9.4 g/dL (14.0-18.0); MEAN CORPUSCULAR HEMOGLOBIN 26.9 pg (28.0-32.0); MEAN CORPUSCULAR VOLUME 83.8 fL (80.0-94.0); MEAN PLATELET VOLUME 7.9 fl (7.4-10.4); PLATELET 277 x1000/uL (130-400); RED BLOOD CELL COUNT 3.48 mill/uL (4.7-6.1); RED CELL DISTRIBUTION WIDTH 16.8 % (11.6-14.6)
[2018-08-11] MEDS: BLOOD SUGAR DIAGNOSTIC STRIP TEST SCH ×3 (06:42→17:40)
[2018-08-11] MEDS: INSULIN LISPRO 100 UNITS/ML SUBCUT SCH ×3 (08:10→18:10)
[2018-08-11] MEDS ORDERED: ASPIRIN 81MG TABLET PO SCH (09:00)
[2018-08-11] MEDS ORDERED: LISINOPRIL 10MG TABLET PO SCH (09:00)
[2018-08-11] MEDS: LINAGLIPTIN 5MG TABLET PO SCH (09:21)
[2018-08-11] MEDS: AMLODIPINE 10MG TABLET PO SCH (09:21)
[2018-08-11] MEDS: BUPROPION HCL 75MG TABLET PO SCH (09:21)
[2018-08-11 11:10] LABS: PLATELET ESTIMATE NORMAL
[2018-08-11] MEDS ORDERED: HEPARIN SODIUM 1,000 UNIT/1ML VIAL IV NR (12:30)
[2018-08-11] MEDS ORDERED: HYDRALAZINE HCL 100MG TABLET PO SCH (14:00)
== END 2018-08-11 20:10 | disposition home or self-care (01) | DRG 194 ==
LOC: ER 17:51 → 7WST 21:48 → EDBEDREQ 21:57 → ENRESERV 22:30
PROVIDERS: ADMIT Internal Medicine; ATTEND Internal Medicine
PROC: 5A1D70Z Performance of Urinary Filtration, Intermittent, Less than 6 Hours Per Day (ICD-10-PCS; principal; 2018-08-09)
PROC: 5A1D70Z Performance of Urinary Filtration, Intermittent, Less than 6 Hours Per Day (ICD-10-PCS; 2018-08-10)
DX: I13.2 Hypertensive heart and chronic kidney disease with heart failure and with stage 5 chronic kidney disease, or end stage renal disease (principal); E87.0 Hyperosmolality and hypernatremia; E11.22 Type 2 diabetes mellitus with diabetic chronic kidney disease; I27.20 Pulmonary hypertension, unspecified; N18.6 End stage renal disease; I50.33 Acute on chronic diastolic (congestive) heart failure; E87.5 Hyperkalemia; J44.9 Chronic obstructive pulmonary disease, unspecified; D63.8 Anemia in other chronic diseases classified elsewhere; B18.2 Chronic viral hepatitis C; E78.5 Hyperlipidemia, unspecified; J45.909 Unspecified asthma, uncomplicated; F99 Mental disorder, not otherwise specified; F17.200 Nicotine dependence, unspecified, uncomplicated; I34.0 Nonrheumatic mitral (valve) insufficiency; Z79.84 Long term (current) use of oral hypoglycemic drugs; Z99.2 Dependence on renal dialysis; Z79.82 Long term (current) use of aspirin; Z79.899 Other long term (current) drug therapy
CPT/HCPCS: 36415; 71045; 80048; 82550; 82553; 82962; 83605; 83880; 84484; 93005; 94640; 99285; G0482; J1644; J7620

== ENCOUNTER 2018-10-15 07:44 | Inpatient (IN) | payer MEDICARE, OTHER ==
[~2018-10-15] VITALS: Ht 152.4 cm; Wt 62.6 kg
[2018-10-15 09:32] LABS: *AMPHETAMINES SCREEN URINE NEGATIVE (NEGATIVE); *BARBITURATES SCREEN URINE NEGATIVE (NEGATIVE); *BENZODIAZEPINES SCREEN URINE NEGATIVE (NEGATIVE)
[2018-10-15 09:33] LABS: *COCAINE SCREEN URINE NEGATIVE (NEGATIVE); METHADONE URINE SCREEN NEGATIVE (NEGATIVE)
[2018-10-15 09:34] LABS: CANNABINOID URINE SCREEN NEGATIVE (NEGATIVE); OPIATES URINE SCREEN NEGATIVE (NEGATIVE); PHENCYCLIDINE URINE SCREEN NEGATIVE (NEGATIVE)
[2018-10-15] MEDS ORDERED: CLONIDINE 0.2MG TABLET PO NR (10:15)
[2018-10-15] MEDS ORDERED: CLONIDINE 0.1MG TABLET PO PRN ×2 (10:15→11:15)
[2018-10-15] MEDS: HYDRALAZINE HCL 100MG TABLET PO SCH ×3 (11:00→23:21)
[2018-10-15] MEDS: AMLODIPINE 5MG TABLET PO SCH ×2 (11:00→20:27)
[2018-10-15] MEDS ORDERED: ONDANSETRON HCL 4MG/2ML INJ IV PRN (11:15)
[2018-10-15] MEDS ORDERED: ACETAMINOPHEN 325MG TABLET PO PRN (11:15)
[2018-10-15 12:45] VITALS: BP 152/86
[2018-10-15] MEDS ORDERED: DEXTROSE 50% WATER 50ML SYRINGE IV PRN (13:00)
[2018-10-15] MEDS: INSULIN LISPRO 100 UNITS/ML SUBCUT SCH ×3 (13:15→20:35)
[2018-10-15] MEDS ORDERED: GUAIFENESIN-DM 200MG-20MG/10ML UDC PO PRN (13:30)
[2018-10-15] MEDS: QUETIAPINE FUMARATE 25MG TABLET PO SCH (14:17)
[2018-10-15] MEDS: LINAGLIPTIN 5MG TABLET PO SCH (14:17)
[2018-10-15 14:25] VITALS: BP 152/86
[2018-10-15 15:12] LABS: CLARITY URINE CLEAR (CLEAR); COLOR URINE YELLOW (YELLOW); KETONES URINE NEGATIVE (NEGATIVE); LEUKOCYTE ESTERASE URINE NEGATIVE (NEGATIVE); NITRITE URINE NEGATIVE (NEGATIVE); OCCULT BLOOD URINE NEGATIVE (NEGATIVE); PH URINE 7.5 (4.5-8.0); PROTEIN URINE 3+ (NEGATIVE); SPECIFIC GRAVITY URINE 1.016 (1.005-1.030)
[2018-10-15] MEDS ORDERED: CALC667C PO (15:13)
[2018-10-15] MEDS ORDERED: LABE100T5 PO (15:13)
[2018-10-15] MEDS ORDERED: CARV6.2548 PO (15:13)
[2018-10-15] MEDS ORDERED: TAMS-11 PO (15:13)
[2018-10-15 16:00] VITALS: BP 138/78
[2018-10-15] MEDS: BLOOD SUGAR DIAGNOSTIC STRIP TEST SCH ×2 (16:35→20:35)
[2018-10-15 19:46] VITALS: BP 127/70
[2018-10-15] MEDS: BUPROPION HCL 75MG TABLET PO SCH (20:27)
[2018-10-15] MEDS: LABETALOL HCL 100MG TABLET PO SCH (20:27)
[2018-10-15] MEDS: CARVEDILOL 6.25 MG TABLET PO SCH ×2 (21:00→23:21)
[2018-10-15 21:43] LABS: HEMATOCRIT. 38.8 % (42.0-52.0); HEMOGLOBIN. 12.5 g/dL (14.0-18.0); MEAN CORPUSCULAR HEMOGLOBIN 27.5 pg (28.0-32.0); MEAN CORPUSCULAR VOLUME 85.2 fL (80.0-94.0); MEAN PLATELET VOLUME 8.3 fl (7.4-10.4); PLATELET 198 x1000/uL (130-400); RED BLOOD CELL COUNT 4.55 mill/uL (4.7-6.1); RED CELL DISTRIBUTION WIDTH 15.7 % (11.6-14.6)
[2018-10-15 23:20] VITALS: BP 142/82
[2018-10-15 23:27] LABS: PLATELET ESTIMATE NORMAL
[2018-10-16] VITALS (7 sets, daily range): BP systolic 124–166; BP diastolic 74–93
[2018-10-16] MEDS: BLOOD SUGAR DIAGNOSTIC STRIP TEST SCH ×4 (06:26→21:38)
[2018-10-16] MEDS: HYDRALAZINE HCL 100MG TABLET PO SCH ×3 (06:26→21:39)
[2018-10-16] MEDS: INSULIN LISPRO 100 UNITS/ML SUBCUT SCH ×4 (06:26→21:00)
[2018-10-16 06:39] LABS: BASOPHILS % 0.3 % (0.0-2.0); EOSINOPHILS % 11.3 % (0.0-5.0); HEMATOCRIT. 38.1 % (42.0-52.0); HEMOGLOBIN. 12.4 g/dL (14.0-18.0); LYMPHOCYTES % 20.1 % (20.0-50.0); MEAN CORPUSCULAR VOLUME 85.9 fL (80.0-94.0); MEAN PLATELET VOLUME 7.8 fl (7.4-10.4); NEUTROPHILS % 54.3 % (40.0-76.0); PLATELET 193 x1000/uL (130-400); RED BLOOD CELL COUNT 4.43 mill/uL (4.7-6.1); RED CELL DISTRIBUTION WIDTH 15.9 % (11.6-14.6)
[2018-10-16 07:20] LABS: CHLORIDE 104 mEq/L (98-107)
[2018-10-16 07:42] LABS: LDL CHOLESTEROL 95 mg/dL (5-100)
[2018-10-16 07:43] LABS: CREATINE KINASE 180 IU/L (39-308); CREATINE KINASE MB FRACTION 1.4 ng/mL (0.5-3.6)
[2018-10-16 07:44] LABS: HDL CHOLESTEROL 55 mg/dL (40-59)
[2018-10-16] MEDS: LINAGLIPTIN 5MG TABLET PO SCH (09:41)
[2018-10-16] MEDS: LABETALOL HCL 100MG TABLET PO SCH ×2 (09:42→21:39)
[2018-10-16] MEDS: QUETIAPINE FUMARATE 25MG TABLET PO SCH (09:42)
[2018-10-16] MEDS: CARVEDILOL 6.25 MG TABLET PO SCH ×2 (09:42→21:39)
[2018-10-16] MEDS: AMLODIPINE 5MG TABLET PO SCH ×2 (09:43→21:39)
[2018-10-16] MEDS: BUPROPION HCL 75MG TABLET PO SCH ×2 (09:43→21:39)
[2018-10-16] MEDS ORDERED: REGADENOSON 0.4 MG/5 ML IV NR (10:15)
[2018-10-16] MEDS ORDERED: HEPARIN SODIUM 1,000 UNIT/1ML VIAL IV NR (19:45)
[2018-10-17] VITALS (8 sets, daily range): BP systolic 113–159; BP diastolic 56–90
[2018-10-17] MEDS: HYDRALAZINE HCL 100MG TABLET PO SCH ×3 (05:34→21:57)
[2018-10-17] MEDS: INSULIN LISPRO 100 UNITS/ML SUBCUT SCH ×4 (06:04→21:00)
[2018-10-17] MEDS: BLOOD SUGAR DIAGNOSTIC STRIP TEST SCH ×4 (06:04→21:08)
[2018-10-17 06:43] LABS: HEMATOCRIT. 38.4 % (42.0-52.0); HEMOGLOBIN. 12.5 g/dL (14.0-18.0); MEAN CORPUSCULAR HEMOGLOBIN 27.9 pg (28.0-32.0); MEAN CORPUSCULAR VOLUME 85.7 fL (80.0-94.0); MEAN PLATELET VOLUME 8.4 fl (7.4-10.4); PLATELET 175 x1000/uL (130-400); RED BLOOD CELL COUNT 4.48 mill/uL (4.7-6.1); RED CELL DISTRIBUTION WIDTH 15.6 % (11.6-14.6)
[2018-10-17] MEDS: LINAGLIPTIN 5MG TABLET PO SCH (08:53)
[2018-10-17] MEDS: AMLODIPINE 5MG TABLET PO SCH ×2 (08:53→21:57)
[2018-10-17] MEDS: CARVEDILOL 6.25 MG TABLET PO SCH ×2 (08:54→22:00)
[2018-10-17] MEDS: QUETIAPINE FUMARATE 25MG TABLET PO SCH (08:54)
[2018-10-17] MEDS: BUPROPION HCL 75MG TABLET PO SCH ×3 (09:12→21:58)
[2018-10-17] MEDS: LABETALOL HCL 100MG TABLET PO SCH ×2 (09:12→21:56)
[2018-10-17] MEDS: HYDROMORPHONE HCL/PF 2MG/ML CPJ IV PRN ×2 (09:15→16:48)
[2018-10-17 09:36] LABS: PLATELET ESTIMATE NORMAL
[2018-10-17] MEDS ORDERED: LACTULOSE 20G/30ML UDC PO PRN (12:45)
[2018-10-17] MEDS: DOCUSATE SODIUM 100MG CAPSULE PO SCH ×2 (13:33→21:59)
[2018-10-18] VITALS: BP 134/65
[2018-10-18 04:00] VITALS: BP 158/84
[2018-10-18] MEDS: HYDRALAZINE HCL 100MG TABLET PO SCH ×2 (05:10→11:08)
[2018-10-18 06:27] LABS: HEMATOCRIT. 37.6 % (42.0-52.0); HEMOGLOBIN. 12.2 g/dL (14.0-18.0); MEAN CORPUSCULAR HEMOGLOBIN 27.4 pg (28.0-32.0); MEAN CORPUSCULAR VOLUME 84.7 fL (80.0-94.0); MEAN PLATELET VOLUME 8.3 fl (7.4-10.4); PLATELET 198 x1000/uL (130-400); RED BLOOD CELL COUNT 4.44 mill/uL (4.7-6.1); RED CELL DISTRIBUTION WIDTH 15.5 % (11.6-14.6)
[2018-10-18] MEDS: BLOOD SUGAR DIAGNOSTIC STRIP TEST SCH ×2 (06:36→11:33)
[2018-10-18] MEDS: INSULIN LISPRO 100 UNITS/ML SUBCUT SCH ×2 (06:36→11:37)
[2018-10-18 08:00] VITALS: BP 162/86
[2018-10-18] MEDS: LABETALOL HCL 100MG TABLET PO SCH (09:00)
[2018-10-18 09:17] LABS: PLATELET ESTIMATE NORMAL
[2018-10-18] MEDS: QUETIAPINE FUMARATE 25MG TABLET PO SCH (11:08)
[2018-10-18] MEDS: BUPROPION HCL 75MG TABLET PO SCH (11:08)
[2018-10-18] MEDS: DOCUSATE SODIUM 100MG CAPSULE PO SCH (11:08)
[2018-10-18] MEDS: CARVEDILOL 6.25 MG TABLET PO SCH (11:08)
[2018-10-18] MEDS: LINAGLIPTIN 5MG TABLET PO SCH (11:08)
[2018-10-18] MEDS: AMLODIPINE 5MG TABLET PO SCH (11:09)
[2018-10-18 12:00] VITALS: BP_SYST 128; BP_SYST 81; BP_DIAS 66; BP_DIAS 73
[2018-10-18] MEDS ORDERED: HEPARIN SODIUM 1,000 UNIT/1ML VIAL IV NR (14:30)
== END 2018-10-18 18:43 | disposition home or self-care (01) | DRG 466 ==
LOC: OR 07:44 → 8WST 07:45
PROVIDERS: ADMIT Hospitalist; ATTEND Hospitalist
PROC: 5A1D70Z Performance of Urinary Filtration, Intermittent, Less than 6 Hours Per Day (ICD-10-PCS; principal; 2018-10-15)
PROC: 5A1D70Z Performance of Urinary Filtration, Intermittent, Less than 6 Hours Per Day (ICD-10-PCS; 2018-10-18)
DX: T82.510A Breakdown (mechanical) of surgically created arteriovenous fistula, initial encounter (principal); N18.6 End stage renal disease; I13.2 Hypertensive heart and chronic kidney disease with heart failure and with stage 5 chronic kidney disease, or end stage renal disease; E11.22 Type 2 diabetes mellitus with diabetic chronic kidney disease; I27.20 Pulmonary hypertension, unspecified; J44.9 Chronic obstructive pulmonary disease, unspecified; B19.20 Unspecified viral hepatitis C without hepatic coma; E78.00 Pure hypercholesterolemia, unspecified; D64.9 Anemia, unspecified; F31.9 Bipolar disorder, unspecified; I50.9 Heart failure, unspecified; E78.5 Hyperlipidemia, unspecified; I10 Essential (primary) hypertension; F43.10 Post-traumatic stress disorder, unspecified; R94.31 Abnormal electrocardiogram [ECG] [EKG]; R07.9 Chest pain, unspecified; Y83.8 Other surgical procedures as the cause of abnormal reaction of the patient, or of later complication, without mention of misadventure at the time of the procedure; F14.10 Cocaine abuse, uncomplicated; F17.200 Nicotine dependence, unspecified, uncomplicated; Y71.2 Prosthetic and other implants, materials and accessory cardiovascular devices associated with adverse incidents; Z82.49 Family history of ischemic heart disease and other diseases of the circulatory system; Z91.14 Patient's other noncompliance with medication regimen; Z99.2 Dependence on renal dialysis; Y92.89 Other specified places as the place of occurrence of the external cause
CPT/HCPCS: 36415; 78452; 80048; 80061; 80305; 82550; 82553; 82962; 83036; 83735; 83880; 84443; 84484; 85379; 93005; 93017; 93306; 93970; A9500; C1893; J1170; J1644; J1815

== ENCOUNTER 2018-11-15 16:44 | Inpatient (IN) | payer MEDICARE, OTHER ==
[~2018-11-15] VITALS: Ht 172.7 cm; Wt 58.2 kg
[~2018-11-15 16:44] MED LIST changes: +CALC667C PO; +CARV6.2548 PO; +TAMS-11 PO
[2018-11-15] MEDS ORDERED: HYDRALAZINE HCL 50MG TABLET PO ONE (23:30)
[2018-11-15] MEDS ORDERED: CARVEDILOL 6.25 MG TABLET PO ONE (23:30)
[2018-11-15 23:44] LABS: HEMATOCRIT. 39.4 % (42.0-52.0); HEMOGLOBIN. 12.9 g/dL (14.0-18.0); MEAN CORPUSCULAR HEMOGLOBIN 27.2 pg (28.0-32.0); MEAN CORPUSCULAR VOLUME 83.2 fL (80.0-94.0); MEAN PLATELET VOLUME 7.4 fl (7.4-10.4); PLATELET 184 x1000/uL (130-400); RED BLOOD CELL COUNT 4.74 mill/uL (4.7-6.1); RED CELL DISTRIBUTION WIDTH 15.5 % (11.6-14.6)
[2018-11-15 23:51] LABS: CHLORIDE 106 mEq/L (98-107)
[2018-11-16] MEDS ORDERED: MORPHINE SULFATE 4 MG/ML CPJ (NOT FOR IM USE) IV ONE
[2018-11-16 03:30] LABS: PLATELET ESTIMATE NORMAL
[2018-11-16 09:00] VITALS: BP 207/115
[2018-11-16] MEDS ORDERED: LORAZEPAM 2MG/ML CPJ IV PRN (09:15)
[2018-11-16] MEDS ORDERED: HYDROMORPHONE HCL/PF 2MG/ML CPJ IV PRN (09:15)
[2018-11-16] MEDS ORDERED: IPRATROPIUM/ALBUTEROL 0.5-3(2.5)MG/3ML NEB INH PRN (09:15)
[2018-11-16] MEDS ORDERED: DIPHENHYDRAMINE 50MG/ML VIAL IV PRN (09:15)
[2018-11-16] MEDS ORDERED: DEXTROSE 50% WATER 50ML SYRINGE IV PRN (09:15)
[2018-11-16] MEDS ORDERED: HYDROCODONE/ACETAMINOPHEN 10/325MG TABLET PO PRN (09:15)
[2018-11-16] MEDS ORDERED: DOCUSATE SODIUM 100MG CAPSULE PO PRN (09:15)
[2018-11-16] MEDS ORDERED: MAGNESIUM/ALUMINUM HYDROXIDE/SIMETHICONE 30ML UDC PO PRN (09:15)
[2018-11-16] MEDS ORDERED: ACETAMINOPHEN 325MG TABLET PO PRN (09:15)
[2018-11-16] MEDS ORDERED: GUAIFENESIN 200MG/10ML SUGAR FREE UDC PO PRN (09:15)
[2018-11-16] MEDS ORDERED: ONDANSETRON HCL 4MG/2ML INJ IV PRN (09:15)
[2018-11-16] MEDS: ENOXAPARIN 30MG/0.3ML SYR SUBCUT SCH (10:15)
[2018-11-16] MEDS: HYDRALAZINE 20MG/ML VIAL IV PRN (10:16)
[2018-11-16] MEDS: ASPIRIN 81MG EC TABLET PO SCH (10:16)
[2018-11-16] MEDS: BLOOD SUGAR DIAGNOSTIC STRIP TEST SCH ×2 (12:40→20:54)
[2018-11-16] MEDS: INSULIN LISPRO 100 UNITS/ML SUBCUT SCH ×2 (13:10→20:54)
[2018-11-16 16:00] VITALS: BP 174/91
[2018-11-16] MEDS: CLONIDINE 0.1MG TABLET PO PRN (16:38)
[2018-11-16] MEDS: SODIUM CHLORIDE 0.9% INJ 3ML FLUSH IVF SCH ×2 (16:39→20:54)
[2018-11-16 20:00] VITALS: BP 165/89
[2018-11-16] MEDS ORDERED: PNEUMOCOCCAL 23-VAL P-SAC VAC 0.5 ML IM ONE (20:45)
[2018-11-17] VITALS: BP 182/112
[2018-11-17 00:41] LABS: CREATINE KINASE MB FRACTION 1.5 ng/mL (0.5-3.6)
[2018-11-17] MEDS: HYDRALAZINE 20MG/ML VIAL IV PRN (01:22)
[2018-11-17 04:00] VITALS: BP 158/91
[2018-11-17] MEDS: SODIUM CHLORIDE 0.9% INJ 3ML FLUSH IVF SCH ×2 (06:04→21:38)
[2018-11-17 06:17] LABS: HEMATOCRIT. 42.7 % (42.0-52.0); HEMOGLOBIN. 14.1 g/dL (14.0-18.0); MEAN CORPUSCULAR HEMOGLOBIN 27.7 pg (28.0-32.0); MEAN CORPUSCULAR VOLUME 83.6 fL (80.0-94.0); MEAN PLATELET VOLUME 8.2 fl (7.4-10.4); PLATELET 204 x1000/uL (130-400); RED BLOOD CELL COUNT 5.11 mill/uL (4.7-6.1); RED CELL DISTRIBUTION WIDTH 15.5 % (11.6-14.6)
[2018-11-17 07:01] LABS: CHLORIDE 103 mEq/L (98-107)
[2018-11-17] MEDS: ENOXAPARIN 30MG/0.3ML SYR SUBCUT SCH (08:47)
[2018-11-17] MEDS: ASPIRIN 81MG EC TABLET PO SCH (08:47)
[2018-11-17] MEDS: CLONIDINE 0.1MG TABLET PO PRN (08:48)
[2018-11-17 10:17] LABS: PLATELET ESTIMATE NORMAL
[2018-11-17 20:00] VITALS: BP 155/109
[2018-11-17] MEDS: INSULIN LISPRO 100 UNITS/ML SUBCUT SCH (21:00)
[2018-11-17] MEDS: BLOOD SUGAR DIAGNOSTIC STRIP TEST SCH (21:00)
[2018-11-18 00:11] VITALS: BP_SYST 108; BP_SYST 157; BP_DIAS 67; BP_DIAS 96
[2018-11-18 04:00] VITALS: BP 163/95
[2018-11-18] MEDS: CLONIDINE 0.1MG TABLET PO PRN (05:14)
[2018-11-18] MEDS: BLOOD SUGAR DIAGNOSTIC STRIP TEST SCH (05:57)
[2018-11-18] MEDS: SODIUM CHLORIDE 0.9% INJ 3ML FLUSH IVF SCH (05:57)
[2018-11-18 07:02] LABS: HEMOGLOBIN. 13.4 g/dL (14.0-18.0); MEAN CORPUSCULAR HEMOGLOBIN 27.2 pg (28.0-32.0); MEAN CORPUSCULAR VOLUME 83.4 fL (80.0-94.0); MEAN PLATELET VOLUME 8.4 fl (7.4-10.4); PLATELET 193 x1000/uL (130-400); RED BLOOD CELL COUNT 4.92 mill/uL (4.7-6.1); RED CELL DISTRIBUTION WIDTH 15.5 % (11.6-14.6)
[2018-11-18 08:00] VITALS: BP 153/97
[2018-11-18] MEDS: INSULIN LISPRO 100 UNITS/ML SUBCUT SCH (08:10)
[2018-11-18] MEDS: ASPIRIN 81MG EC TABLET PO SCH (09:16)
[2018-11-18] MEDS: ENOXAPARIN 30MG/0.3ML SYR SUBCUT SCH (09:16)
[2018-11-18 09:28] LABS: PLATELET ESTIMATE NORMAL
[2018-11-18 11:37] VITALS: BP 153/97
[2018-11-18 12:00] VITALS: BP 138/79
[2018-11-18] MEDS ORDERED: HEPARIN SODIUM 1,000 UNIT/1ML VIAL IV SCH (15:15)
[2018-11-18 16:00] VITALS: BP 123/78
== END 2018-11-18 19:00 | disposition home or self-care (01) | DRG 198 ==
LOC: ER 16:44 → 7WST 11-16 00:48 → EDBEDREQ 11-16 00:53 → EDBEDREQDT 11-16 00:53 → EDBEDREQTM 11-16 00:53 → ENRESERV 11-16 07:19
PROVIDERS: ADMIT Internal Medicine; ATTEND Internal Medicine
PROC: 5A1D70Z Performance of Urinary Filtration, Intermittent, Less than 6 Hours Per Day (ICD-10-PCS; principal; 2018-11-16)
PROC: 5A1D70Z Performance of Urinary Filtration, Intermittent, Less than 6 Hours Per Day (ICD-10-PCS; 2018-11-18)
DX: R07.89 Other chest pain (principal); I25.2 Old myocardial infarction; I13.2 Hypertensive heart and chronic kidney disease with heart failure and with stage 5 chronic kidney disease, or end stage renal disease; E11.22 Type 2 diabetes mellitus with diabetic chronic kidney disease; N18.6 End stage renal disease; I50.9 Heart failure, unspecified; J44.9 Chronic obstructive pulmonary disease, unspecified; N50.819 Testicular pain, unspecified; Z99.2 Dependence on renal dialysis; J98.11 Atelectasis; N43.3 Hydrocele, unspecified; Z86.73 Personal history of transient ischemic attack (TIA), and cerebral infarction without residual deficits; Z79.899 Other long term (current) drug therapy; Z79.82 Long term (current) use of aspirin
CPT/HCPCS: 36415; 71045; 76870; 80048; 82550; 82553; 82962; 83880; 84484; 90732; 93005; 93306; 93976; 99285; J0360; J1644; J1650; J1815; J2270

== ENCOUNTER 2018-12-17 03:00 | Inpatient (IN) | payer MEDICARE, OTHER ==
[~2018-12-17] VITALS: Ht 165.1 cm; Wt 66.2 kg
[2018-12-17] VITALS (11 sets, daily range): BP systolic 135–173; BP diastolic 73–90
[2018-12-17] MEDS ORDERED: ONDANSETRON HCL 4MG/2ML INJ IV STA (03:12)
[2018-12-17 03:39] LABS: EOSINOPHILS % 4.6 % (0.0-5.0); HEMATOCRIT. 36.8 % (42.0-52.0); HEMOGLOBIN. 11.9 g/dL (14.0-18.0); LYMPHOCYTES % 19.3 % (20.0-50.0); MEAN CORPUSCULAR HEMOGLOBIN 27.1 pg (28.0-32.0); MEAN CORPUSCULAR VOLUME 83.6 fL (80.0-94.0); MEAN PLATELET VOLUME 7.5 fl (7.4-10.4); MONOCYTES % 12.7 % (2.0-8.0); NEUTROPHILS % 62.4 % (40.0-76.0); PLATELET 229 x1000/uL (130-400)
[2018-12-17 03:41] LABS: CHLORIDE 103 mEq/L (98-107)
[2018-12-17 04:01] LABS: BG BASE EXCESS 1.9 mmol/L (-2.0-2.0); BG BILEVEL POS AIRWAY PRESSURE 15/8; BG CARBOXYHEMOGLOBIN 0.6 % (0.5-1.5); BG DEOXYHEMOGLOBIN 3.9 % (0.0-5.0); BG FRACTION INSPIRED OXYGEN 40; BG HCO3 ACT 26.5 mmol/L (22.0-26.0); BG METHEMOGLOBIN 0.1 % (0.0-1.5); BG OXYGEN SATURATION 96.1 % (92.0-98.5); BG OXYHEMOGLOBIN 95.4 % (94.0-97.0); BG PCO2 41.3 mmHg (35.0-45.0); BG PH 7.425 (7.350-7.450); BG PO2 91.1 mmHg (75.0-100.0); BG SAMPLE SITE LEFT BRACHIAL; BG TOTAL HEMOGLOBIN 11.4 g/dL (12.0-18.0); BG VENT MODE MASK - BIPAP; BG VENT RATE 16 set
[2018-12-17] MEDS ORDERED: MAGNESIUM/ALUMINUM HYDROXIDE/SIMETHICONE 30ML UDC PO PRN (10:30)
[2018-12-17] MEDS ORDERED: DIPHENHYDRAMINE 50MG/ML VIAL IV PRN (10:30)
[2018-12-17] MEDS ORDERED: DOCUSATE SODIUM 100MG CAPSULE PO PRN (10:30)
[2018-12-17] MEDS ORDERED: LORAZEPAM 0.5MG TABLET PO PRN (10:30)
[2018-12-17] MEDS ORDERED: ENOXAPARIN 40MG/0.4ML SYR SUBCUT SCH (10:30)
[2018-12-17] MEDS ORDERED: ACETAMINOPHEN 325MG TABLET PO PRN (10:30)
[2018-12-17] MEDS ORDERED: IPRATROPIUM/ALBUTEROL 0.5-3(2.5)MG/3ML NEB INH PRN (10:30)
[2018-12-17] MEDS ORDERED: GUAIFENESIN 200MG/10ML SUGAR FREE UDC PO PRN (10:30)
[2018-12-17] MEDS ORDERED: NITROGLYCERIN 0.4MG TABLET SL SL PRN (10:30)
[2018-12-17] MEDS ORDERED: TRAMADOL 50MG TABLET PO PRN (10:30)
[2018-12-17] MEDS ORDERED: ONDANSETRON HCL 4MG/2ML INJ IV PRN (10:30)
[2018-12-17] MEDS: ASPIRIN 325MG EC TABLET PO SCH (13:14)
[2018-12-17] MEDS: AMLODIPINE 10MG TABLET PO SCH (13:14)
[2018-12-17] MEDS: CARVEDILOL 3.125 MG TABLET PO SCH ×2 (13:15→21:33)
[2018-12-17] MEDS: FOLIC ACID/VITAMIN B COMP W-C TABLET PO SCH (13:15)
[2018-12-17] MEDS: HYDRALAZINE HCL 50MG TABLET PO SCH ×2 (13:15→22:07)
[2018-12-17] MEDS: ENOXAPARIN 30MG/0.3ML SYR SUBCUT SCH (13:17)
[2018-12-17] MEDS: SEVELAMER CARBONATE 800 MG TABLET PO SCH ×2 (13:40→18:11)
[2018-12-17 15:45] LABS: CREATINE KINASE MB FRACTION 1.1 ng/mL (0.5-3.6)
[2018-12-17] MEDS ORDERED: DEXTROSE 50% WATER 50ML SYRINGE IV PRN (16:30)
[2018-12-17] MEDS: INSULIN LISPRO 100 UNITS/ML SUBCUT SCH ×2 (18:00→21:00)
[2018-12-17] MEDS: BLOOD SUGAR DIAGNOSTIC STRIP TEST SCH ×2 (18:01→21:34)
[2018-12-17] MEDS ORDERED: ZOLPIDEM TARTRATE 5MG TABLET PO PRN (21:00)
[2018-12-17] MEDS: FAMOTIDINE 20MG TABLET PO SCH (21:33)
[2018-12-17 23:29] LABS: CREATINE KINASE 245 IU/L (39-308)
[2018-12-17 23:30] LABS: CREATINE KINASE MB FRACTION < 1.0 ng/mL (0.5-3.6)
[2018-12-18] VITALS (11 sets, daily range): BP systolic 133–190; BP diastolic 81–108
[2018-12-18] MEDS: HYDRALAZINE HCL 50MG TABLET PO SCH ×3 (06:01→21:45)
[2018-12-18 07:21] LABS: EOSINOPHILS % 6.1 % (0.0-5.0); HEMATOCRIT. 33.7 % (42.0-52.0); LYMPHOCYTES % 17.4 % (20.0-50.0); MEAN CORPUSCULAR HEMOGLOBIN 27.2 pg (28.0-32.0); MEAN CORPUSCULAR VOLUME 83.5 fL (80.0-94.0); MEAN PLATELET VOLUME 7.8 fl (7.4-10.4); MONOCYTES % 11.7 % (2.0-8.0); NEUTROPHILS % 63.8 % (40.0-76.0); PLATELET 189 x1000/uL (130-400); RED BLOOD CELL COUNT 4.03 mill/uL (4.7-6.1); RED CELL DISTRIBUTION WIDTH 16.2 % (11.6-14.6)
[2018-12-18] MEDS: BLOOD SUGAR DIAGNOSTIC STRIP TEST SCH ×3 (07:30→21:47)
[2018-12-18] MEDS: INSULIN LISPRO 100 UNITS/ML SUBCUT SCH ×3 (08:00→21:00)
[2018-12-18] MEDS: FOLIC ACID/VITAMIN B COMP W-C TABLET PO SCH (08:51)
[2018-12-18] MEDS: ASPIRIN 325MG EC TABLET PO SCH (08:52)
[2018-12-18] MEDS: SEVELAMER CARBONATE 800 MG TABLET PO SCH ×3 (08:52→17:38)
[2018-12-18] MEDS: FAMOTIDINE 20MG TABLET PO SCH (08:52)
[2018-12-18] MEDS: ENOXAPARIN 30MG/0.3ML SYR SUBCUT SCH (08:53)
[2018-12-18] MEDS: AMLODIPINE 10MG TABLET PO SCH (09:06)
[2018-12-18] MEDS: CARVEDILOL 3.125 MG TABLET PO SCH ×2 (09:07→21:46)
[2018-12-18] MEDS: CLONIDINE 0.1MG TABLET PO PRN (16:23)
[2018-12-19] VITALS (10 sets, daily range): BP systolic 150–185; BP diastolic 72–101
[2018-12-19] MEDS: CLONIDINE 0.1MG TABLET PO PRN (04:17)
[2018-12-19] MEDS: HYDRALAZINE HCL 50MG TABLET PO SCH (06:07)
[2018-12-19] MEDS: BLOOD SUGAR DIAGNOSTIC STRIP TEST SCH ×2 (07:30→12:24)
[2018-12-19 07:53] LABS: BASOPHILS % 0.9 % (0.0-2.0); EOSINOPHILS % 6.4 % (0.0-5.0); HEMATOCRIT. 32.7 % (42.0-52.0); HEMOGLOBIN. 10.7 g/dL (14.0-18.0); LYMPHOCYTES % 24.2 % (20.0-50.0); MEAN CORPUSCULAR HEMOGLOBIN 27.2 pg (28.0-32.0); MEAN PLATELET VOLUME 7.9 fl (7.4-10.4); MONOCYTES % 14.9 % (2.0-8.0); NEUTROPHILS % 53.6 % (40.0-76.0); PLATELET 183 x1000/uL (130-400); RED BLOOD CELL COUNT 3.94 mill/uL (4.7-6.1); RED CELL DISTRIBUTION WIDTH 16.1 % (11.6-14.6)
[2018-12-19] MEDS: INSULIN LISPRO 100 UNITS/ML SUBCUT SCH ×2 (08:00→12:29)
[2018-12-19] MEDS: ASPIRIN 325MG EC TABLET PO SCH (09:17)
[2018-12-19] MEDS: FAMOTIDINE 20MG TABLET PO SCH (09:17)
[2018-12-19] MEDS: FOLIC ACID/VITAMIN B COMP W-C TABLET PO SCH (09:17)
[2018-12-19] MEDS: AMLODIPINE 10MG TABLET PO SCH (09:18)
[2018-12-19] MEDS: CARVEDILOL 3.125 MG TABLET PO SCH (09:18)
[2018-12-19] MEDS: SEVELAMER CARBONATE 800 MG TABLET PO SCH ×2 (09:18→12:29)
[2018-12-19] MEDS: ENOXAPARIN 30MG/0.3ML SYR SUBCUT SCH (12:23)
== END 2018-12-19 13:35 | disposition home or self-care (01) | DRG 133 ==
LOC: ER 03:00 → EDBEDREQ 04:57 → EDBEDREQTM 04:57 → ENRESERV 08:25 → 5EST 10:03
PROVIDERS: ADMIT Internal Medicine; ATTEND Internal Medicine
PROC: 5A09357 Assistance with Respiratory Ventilation, Less than 24 Consecutive Hours, Continuous Positive Airway Pressure (ICD-10-PCS; principal; 2018-12-17)
PROC: 5A1D70Z Performance of Urinary Filtration, Intermittent, Less than 6 Hours Per Day (ICD-10-PCS; 2018-12-17)
DX: J96.01 Acute respiratory failure with hypoxia (principal); I13.2 Hypertensive heart and chronic kidney disease with heart failure and with stage 5 chronic kidney disease, or end stage renal disease; J18.9 Pneumonia, unspecified organism; E11.22 Type 2 diabetes mellitus with diabetic chronic kidney disease; N18.6 End stage renal disease; J44.0 Chronic obstructive pulmonary disease with (acute) lower respiratory infection; F17.210 Nicotine dependence, cigarettes, uncomplicated; F20.9 Schizophrenia, unspecified; I50.33 Acute on chronic diastolic (congestive) heart failure; N40.0 Benign prostatic hyperplasia without lower urinary tract symptoms; D63.8 Anemia in other chronic diseases classified elsewhere; Z79.4 Long term (current) use of insulin; Z99.2 Dependence on renal dialysis; Z79.899 Other long term (current) drug therapy; Z79.82 Long term (current) use of aspirin
CPT/HCPCS: 36415; 36600; 71045; 80048; 80061; 82375; 82550; 82553; 82805; 82962; 83036; 83605; 83880; 84484; 93005; 93970; 94660; 96374; 99285; J1650; J2405

== ENCOUNTER 2019-02-07 03:07 | Inpatient (IN) | payer MEDICARE, OTHER ==
[2019-02-07] VITALS (8 sets, daily range): BP systolic 161–198; BP diastolic 82–101
[~2019-02-07] VITALS: Ht 175.3 cm; Wt 52.2 kg
[2019-02-07] MEDS ORDERED: ONDANSETRON HCL 4MG/2ML INJ IV STA (03:23)
[2019-02-07 03:41] LABS: BASOPHILS % 1.1 % (0.0-2.0); EOSINOPHILS % 5.9 % (0.0-5.0); HEMATOCRIT. 36.8 % (42.0-52.0); HEMOGLOBIN. 12.2 g/dL (14.0-18.0); LYMPHOCYTES % 19.8 % (20.0-50.0); MEAN CORPUSCULAR HEMOGLOBIN 28.7 pg (28.0-32.0); MEAN CORPUSCULAR VOLUME 86.7 fL (80.0-94.0); MEAN PLATELET VOLUME 7.2 fl (7.4-10.4); MONOCYTES % 8.6 % (2.0-8.0); NEUTROPHILS % 64.6 % (40.0-76.0); PLATELET 195 x1000/uL (130-400); RED BLOOD CELL COUNT 4.24 mill/uL (4.7-6.1); RED CELL DISTRIBUTION WIDTH 17.9 % (11.6-14.6)
[2019-02-07 03:49] LABS: CHLORIDE 110 mEq/L (98-107)
[2019-02-07] MEDS ORDERED: ONDANSETRON HCL 4MG/2ML INJ IV PRN (08:30)
[2019-02-07] MEDS ORDERED: ACETAMINOPHEN 325MG TABLET PO PRN (08:30)
[2019-02-07] MEDS: AMLODIPINE 5MG TABLET PO SCH ×2 (10:27→20:32)
[2019-02-07] MEDS: ENOXAPARIN 30MG/0.3ML SYR SUBCUT SCH (10:28)
[2019-02-07] MEDS ORDERED: IPRATROPIUM/ALBUTEROL 0.5-3(2.5)MG/3ML NEB HHN PRN (15:15)
[2019-02-07] MEDS: LOSARTAN POTASSIUM 50 MG TABLET PO SCH (15:47)
[2019-02-07] MEDS: CLONIDINE 0.1MG TABLET PO PRN ×2 (17:43→22:46)
[2019-02-07] MEDS ORDERED: HYDRALAZINE 20MG/ML VIAL IV PRN (23:15)
[2019-02-08] VITALS (16 sets, daily range): BP systolic 153–184; BP diastolic 76–106
[2019-02-08] MEDS: IPRATROPIUM/ALBUTEROL 0.5-3(2.5)MG/3ML NEB HHN PRN ×2 (01:08→10:42)
[2019-02-08] MEDS: BUDESONIDE 0.5MG/2ML NEB HHN SCH ×3 (01:10→21:16)
[2019-02-08] MEDS: CLONIDINE 0.1MG TABLET PO PRN (07:25)
[2019-02-08 07:47] LABS: BASOPHILS % 0.9 % (0.0-2.0); EOSINOPHILS % 7.6 % (0.0-5.0); HEMATOCRIT. 34.1 % (42.0-52.0); HEMOGLOBIN. 11.2 g/dL (14.0-18.0); MEAN CORPUSCULAR HEMOGLOBIN 28.8 pg (28.0-32.0); MEAN CORPUSCULAR VOLUME 87.9 fL (80.0-94.0); MEAN PLATELET VOLUME 7.8 fl (7.4-10.4); MONOCYTES % 11.8 % (2.0-8.0); NEUTROPHILS % 57.7 % (40.0-76.0); PLATELET 175 x1000/uL (130-400); RED BLOOD CELL COUNT 3.87 mill/uL (4.7-6.1); RED CELL DISTRIBUTION WIDTH 17.6 % (11.6-14.6)
[2019-02-08] MEDS: ENOXAPARIN 30MG/0.3ML SYR SUBCUT SCH (08:43)
[2019-02-08] MEDS: LOSARTAN POTASSIUM 50 MG TABLET PO SCH (08:44)
[2019-02-08] MEDS: AMLODIPINE 5MG TABLET PO SCH ×2 (08:44→22:43)
[2019-02-08] MEDS: QUETIAPINE FUMARATE 25MG TABLET PO SCH (22:43)
[2019-02-09] VITALS (18 sets, daily range): BP systolic 120–186; BP diastolic 68–133
[2019-02-09 07:29] LABS: BASOPHILS % 1.3 % (0.0-2.0); EOSINOPHILS % 9.3 % (0.0-5.0); HEMATOCRIT. 36.5 % (42.0-52.0); MEAN CORPUSCULAR HEMOGLOBIN 28.5 pg (28.0-32.0); MEAN CORPUSCULAR VOLUME 86.9 fL (80.0-94.0); MEAN PLATELET VOLUME 8.2 fl (7.4-10.4); MONOCYTES % 14.8 % (2.0-8.0); NEUTROPHILS % 50.6 % (40.0-76.0); PLATELET 148 x1000/uL (130-400); RED BLOOD CELL COUNT 4.21 mill/uL (4.7-6.1); RED CELL DISTRIBUTION WIDTH 17.9 % (11.6-14.6)
[2019-02-09] MEDS: ENOXAPARIN 30MG/0.3ML SYR SUBCUT SCH (09:12)
[2019-02-09] MEDS: BUDESONIDE 0.5MG/2ML NEB HHN SCH ×2 (09:15→21:05)
[2019-02-09] MEDS: IPRATROPIUM/ALBUTEROL 0.5-3(2.5)MG/3ML NEB HHN PRN (09:15)
[2019-02-09] MEDS: LOSARTAN POTASSIUM 50 MG TABLET PO SCH (09:35)
[2019-02-09] MEDS: AMLODIPINE 5MG TABLET PO SCH ×2 (09:35→21:23)
[2019-02-09] MEDS ORDERED: BUPROPION HCL 75MG TABLET PO SCH (18:00)
[2019-02-09] MEDS: QUETIAPINE FUMARATE 25MG TABLET PO SCH (21:21)
[2019-02-10 07:10] LABS: HEMATOCRIT. 36.9 % (42.0-52.0); MEAN CORPUSCULAR VOLUME 86.3 fL (80.0-94.0); MEAN PLATELET VOLUME 8.1 fl (7.4-10.4); PLATELET 164 x1000/uL (130-400); RED BLOOD CELL COUNT 4.28 mill/uL (4.7-6.1); RED CELL DISTRIBUTION WIDTH 17.2 % (11.6-14.6)
[2019-02-10] MEDS: BUDESONIDE 0.5MG/2ML NEB HHN SCH (07:40)
[2019-02-10] MEDS: IPRATROPIUM/ALBUTEROL 0.5-3(2.5)MG/3ML NEB HHN PRN (07:40)
[2019-02-10 08:00] VITALS: BP 159/89
[2019-02-10] MEDS: LOSARTAN POTASSIUM 50 MG TABLET PO SCH (08:50)
[2019-02-10] MEDS: ENOXAPARIN 30MG/0.3ML SYR SUBCUT SCH (08:50)
[2019-02-10] MEDS: AMLODIPINE 5MG TABLET PO SCH (08:50)
[2019-02-10 11:09] LABS: PLATELET ESTIMATE NORMAL
[2019-02-10 12:00] VITALS: BP 149/83
[2019-02-10] MEDS ORDERED: HEPARIN SODIUM 1,000 UNIT/1ML VIAL IV SCH (12:45)
[2019-02-10 15:24] VITALS: BP 140/77
== END 2019-02-10 16:03 | disposition home or self-care (01) | DRG 425 ==
LOC: ER 03:07 → 5EST 04:57 → EDBEDREQTM 05:01 → EDBEDREQ 05:01 → ENRESERV 07:23
PROVIDERS: ADMIT Internal Medicine; ATTEND Internal Medicine
PROC: 5A1D70Z Performance of Urinary Filtration, Intermittent, Less than 6 Hours Per Day (ICD-10-PCS; principal; 2019-02-07)
PROC: 5A09357 Assistance with Respiratory Ventilation, Less than 24 Consecutive Hours, Continuous Positive Airway Pressure (ICD-10-PCS; 2019-02-07)
PROC: 5A1D70Z Performance of Urinary Filtration, Intermittent, Less than 6 Hours Per Day (ICD-10-PCS; 2019-02-08)
PROC: 5A1D70Z Performance of Urinary Filtration, Intermittent, Less than 6 Hours Per Day (ICD-10-PCS; 2019-02-10)
DX: E87.70 Fluid overload, unspecified (principal); J96.00 Acute respiratory failure, unspecified whether with hypoxia or hypercapnia; E11.22 Type 2 diabetes mellitus with diabetic chronic kidney disease; E87.8 Other disorders of electrolyte and fluid balance, not elsewhere classified; N18.6 End stage renal disease; D64.9 Anemia, unspecified; J44.9 Chronic obstructive pulmonary disease, unspecified; I13.11 Hypertensive heart and chronic kidney disease without heart failure, with stage 5 chronic kidney disease, or end stage renal disease; Z91.15 Patient's noncompliance with renal dialysis; F17.210 Nicotine dependence, cigarettes, uncomplicated; F31.9 Bipolar disorder, unspecified; N40.0 Benign prostatic hyperplasia without lower urinary tract symptoms; Z99.2 Dependence on renal dialysis; Z79.899 Other long term (current) drug therapy; Z71.6 Tobacco abuse counseling
CPT/HCPCS: 36415; 71045; 80048; 82962; 83880; 84484; 93005; 94640; 94660; 97162; 99285; J0360; J1644; J1650; J2405; J7620; J7626

== ENCOUNTER 2019-02-28 01:48 | Inpatient (IN) | payer MEDICARE, OTHER ==
[~2019-02-28] VITALS: Ht 175.3 cm; Wt 65.3 kg
[2019-02-28] MEDS ORDERED: MORPHINE SULFATE 4 MG/ML CPJ (NOT FOR IM USE) IV ONE (04:15)
[2019-02-28] MEDS ORDERED: ONDANSETRON HCL 4MG/2ML INJ IV ONE (04:15)
[2019-02-28] MEDS ORDERED: CEFTRIAXONE 1 G PREMIX 50 ML IV ONE (04:15)
[2019-02-28 04:48] LABS: BASOPHILS % 1.9 % (0.0-2.0); EOSINOPHILS % 5.6 % (0.0-5.0); HEMATOCRIT. 33.9 % (42.0-52.0); LYMPHOCYTES % 28.2 % (20.0-50.0); MEAN CORPUSCULAR HEMOGLOBIN 28.2 pg (28.0-32.0); MEAN CORPUSCULAR VOLUME 86.6 fL (80.0-94.0); MEAN PLATELET VOLUME 7.4 fl (7.4-10.4); MONOCYTES % 13.8 % (2.0-8.0); NEUTROPHILS % 50.5 % (40.0-76.0); PLATELET 217 x1000/uL (130-400); RED BLOOD CELL COUNT 3.92 mill/uL (4.7-6.1)
[2019-02-28 04:54] LABS: CHLORIDE 105 mEq/L (98-107)
[2019-02-28 07:06] LABS: CLARITY URINE CLEAR (CLEAR); COLOR URINE YELLOW (YELLOW); KETONES URINE NEGATIVE (NEGATIVE); LEUKOCYTE ESTERASE URINE NEGATIVE (NEGATIVE); NITRITE URINE NEGATIVE (NEGATIVE); OCCULT BLOOD URINE NEGATIVE (NEGATIVE); PROTEIN URINE 3+ (NEGATIVE); SPECIFIC GRAVITY URINE 1.014 (1.005-1.030); UROBILINOGEN URINE 0.2 E.U./dL (0.2-1.0)
[2019-02-28 08:08] VITALS: BP 137/73
[2019-02-28 08:20] VITALS: BP 137/73
[2019-02-28] MEDS ORDERED: HYDROCODONE/ACETAMINOPHEN 5/325MG TABLET PO PRN (08:30)
[2019-02-28] MEDS ORDERED: DIPHENHYDRAMINE 50MG/ML VIAL IV PRN (08:30)
[2019-02-28] MEDS ORDERED: IPRATROPIUM/ALBUTEROL 0.5-3(2.5)MG/3ML NEB INH PRN (08:30)
[2019-02-28] MEDS ORDERED: MORPHINE SULFATE 4 MG/ML CPJ (NOT FOR IM USE) IV PRN (08:30)
[2019-02-28] MEDS ORDERED: ONDANSETRON HCL 4MG/2ML INJ IV PRN (08:30)
[2019-02-28] MEDS ORDERED: DOCUSATE SODIUM 100MG CAPSULE PO PRN (08:30)
[2019-02-28] MEDS ORDERED: ACETAMINOPHEN 325MG TABLET PO PRN (08:30)
[2019-02-28] MEDS ORDERED: CLONIDINE 0.1MG TABLET PO PRN (08:30)
[2019-02-28] MEDS ORDERED: MAGNESIUM/ALUMINUM HYDROXIDE/SIMETHICONE 30ML UDC PO PRN (08:30)
[2019-02-28] MEDS ORDERED: GUAIFENESIN 200MG/10ML SUGAR FREE UDC PO PRN (08:30)
[2019-02-28 10:04] LABS: PHOSPHORUS 3.9 mg/dL (2.5-4.9)
[2019-02-28 12:00] VITALS: BP 146/68
[2019-02-28] MEDS: ENOXAPARIN 30MG/0.3ML SYR SUBCUT SCH (12:14)
[2019-02-28] MEDS: LISINOPRIL 10MG TABLET PO SCH (15:30)
[2019-02-28] MEDS ORDERED: CARVEDILOL 6.25 MG TABLET PO SCH (15:30)
[2019-02-28 16:00] VITALS: BP 141/76
[2019-02-28 16:09] LABS: CREATINE KINASE 142 IU/L (39-308)
[2019-02-28 16:10] LABS: CREATINE KINASE MB FRACTION < 1.0 ng/mL (0.5-3.6)
[2019-02-28] MEDS ORDERED: DEXTROSE 50% WATER 50ML SYRINGE IV PRN (16:15)
[2019-02-28] MEDS: TAMSULOSIN HCL 0.4MG SR CAPSULE PO SCH (16:44)
[2019-02-28] MEDS: CALCIUM ACETATE 667MG CAPSULE PO SCH (16:44)
[2019-02-28] MEDS: INSULIN LISPRO 100 UNITS/ML SUBCUT SCH ×2 (16:45→21:00)
[2019-02-28] MEDS: DOXYCYCLINE HYCLATE 100MG CAPSULE PO SCH (16:45)
[2019-02-28] MEDS: LINAGLIPTIN 5MG TABLET PO SCH (16:45)
[2019-02-28] MEDS: BLOOD SUGAR DIAGNOSTIC STRIP TEST SCH ×2 (16:45→21:35)
[2019-02-28 20:00] VITALS: BP 176/99
[2019-02-28] MEDS ORDERED: QUETIAPINE FUMARATE 25MG TABLET PO SCH (21:00)
[2019-02-28] MEDS: HYDRALAZINE HCL 50MG TABLET PO SCH (21:34)
[2019-02-28] MEDS: CARVEDILOL 6.25 MG TABLET PO SCH (21:35)
[2019-03-01] VITALS: BP 177/89
[2019-03-01 00:41] LABS: CREATINE KINASE MB FRACTION 1.1 ng/mL (0.5-3.6)
[2019-03-01] MEDS ORDERED: HEPARIN SODIUM 1,000 UNIT/1ML VIAL IV ONE (02:45)
[2019-03-01 04:00] VITALS: BP 174/100
[2019-03-01] MEDS: HYDRALAZINE HCL 50MG TABLET PO SCH ×2 (05:51→13:06)
[2019-03-01] MEDS: INSULIN LISPRO 100 UNITS/ML SUBCUT SCH ×2 (07:40→12:40)
[2019-03-01] MEDS: BLOOD SUGAR DIAGNOSTIC STRIP TEST SCH ×2 (07:44→12:51)
[2019-03-01 08:00] VITALS: BP 171/96
[2019-03-01 08:55] LABS: HEMATOCRIT. 34.1 % (42.0-52.0); HEMOGLOBIN. 11.3 g/dL (14.0-18.0); MEAN CORPUSCULAR HEMOGLOBIN 28.4 pg (28.0-32.0); MEAN CORPUSCULAR VOLUME 86.1 fL (80.0-94.0); PLATELET 181 x1000/uL (130-400); RED BLOOD CELL COUNT 3.96 mill/uL (4.7-6.1); RED CELL DISTRIBUTION WIDTH 15.5 % (11.6-14.6)
[2019-03-01] MEDS: CARVEDILOL 6.25 MG TABLET PO SCH (09:00)
[2019-03-01] MEDS ORDERED: AMLODIPINE 10MG TABLET PO SCH (09:00)
[2019-03-01] MEDS ORDERED: BUPROPION HCL 75MG TABLET PO SCH (09:00)
[2019-03-01] MEDS ORDERED: ASPIRIN 81MG TABLET PO SCH (09:00)
[2019-03-01 09:50] LABS: CHLORIDE 101 mEq/L (98-107)
[2019-03-01 10:04] LABS: HDL CHOLESTEROL 61 mg/dL (40-59); LDL CHOLESTEROL 67 mg/dL (5-100)
[2019-03-01] MEDS: LINAGLIPTIN 5MG TABLET PO SCH (10:07)
[2019-03-01] MEDS: LISINOPRIL 10MG TABLET PO SCH (10:07)
[2019-03-01] MEDS: TAMSULOSIN HCL 0.4MG SR CAPSULE PO SCH (10:08)
[2019-03-01] MEDS: DOXYCYCLINE HYCLATE 100MG CAPSULE PO SCH (10:08)
[2019-03-01] MEDS: CALCIUM ACETATE 667MG CAPSULE PO SCH ×2 (10:08→13:06)
[2019-03-01] MEDS: ENOXAPARIN 30MG/0.3ML SYR SUBCUT SCH (10:09)
[2019-03-01 12:00] VITALS: BP 154/85
[2019-03-01 14:53] VITALS: BP 154/85
[2019-03-01 16:18] LABS: PLATELET ESTIMATE NORMAL
== END 2019-03-01 16:02 | disposition home or self-care (01) | DRG 425 ==
LOC: ER 01:48 → 8WST 05:41 → EDBEDREQTM 05:45 → EDBEDREQ 05:45 → ENRESERV 07:42
PROVIDERS: ADMIT Internal Medicine; ATTEND Internal Medicine
PROC: 5A1D70Z Performance of Urinary Filtration, Intermittent, Less than 6 Hours Per Day (ICD-10-PCS; principal; 2019-02-28)
DX: E87.70 Fluid overload, unspecified (principal); E11.22 Type 2 diabetes mellitus with diabetic chronic kidney disease; I12.0 Hypertensive chronic kidney disease with stage 5 chronic kidney disease or end stage renal disease; N18.6 End stage renal disease; N50.89 Other specified disorders of the male genital organs; J44.9 Chronic obstructive pulmonary disease, unspecified; F17.200 Nicotine dependence, unspecified, uncomplicated; D64.9 Anemia, unspecified; F32.9 Major depressive disorder, single episode, unspecified; F20.9 Schizophrenia, unspecified; Z79.82 Long term (current) use of aspirin; Z99.2 Dependence on renal dialysis; Z79.899 Other long term (current) drug therapy
CPT/HCPCS: 36415; 71045; 76870; 80048; 80061; 82550; 82553; 82962; 83605; 83735; 84100; 84145; 84443; 84484; 93005; 93970; 93976; 96365; 96375; 99285; J0696; J1644; J1650; J2270; J2405

== ENCOUNTER 2019-04-15 14:40 | Inpatient (IN) | payer MEDICARE, OTHER ==
[~2019-04-15] VITALS: Ht 172.7 cm; Wt 60.3 kg
[2019-04-15] MEDS ORDERED: NALOXONE HCL 1 MG/ML 2ML VIAL IV ONE (15:15)
[2019-04-15 16:10] LABS: CHLORIDE 109 mEq/L (98-107); HEMATOCRIT. 38.1 % (42.0-52.0); HEMOGLOBIN. 12.7 g/dL (14.0-18.0); MEAN CORPUSCULAR HEMOGLOBIN 29.1 pg (28.0-32.0); MEAN CORPUSCULAR VOLUME 87.4 fL (80.0-94.0); MEAN PLATELET VOLUME 7.5 fl (7.4-10.4); PLATELET 247 x1000/uL (130-400); RED BLOOD CELL COUNT 4.35 mill/uL (4.7-6.1); RED CELL DISTRIBUTION WIDTH 17.2 % (11.6-14.6)
[2019-04-15 16:11] LABS: PROTHROMBIN TIME 10.3 sec (9.6-11.0)
[2019-04-15 16:14] LABS: ETHANOL BLOOD < 10 mg/dL
[2019-04-15 16:36] LABS: CLARITY URINE CLEAR (CLEAR); COLOR URINE YELLOW (YELLOW); KETONES URINE NEGATIVE (NEGATIVE); LEUKOCYTE ESTERASE URINE NEGATIVE (NEGATIVE); NITRITE URINE NEGATIVE (NEGATIVE); OCCULT BLOOD URINE NEGATIVE (NEGATIVE); PH URINE 7.5 (4.5-8.0); PROTEIN URINE 3+ (NEGATIVE); SPECIFIC GRAVITY URINE 1.012 (1.005-1.030); UROBILINOGEN URINE 0.2 E.U./dL (0.2-1.0)
[2019-04-15 16:48] LABS: *BARBITURATES SCREEN URINE NEGATIVE (NEGATIVE)
[2019-04-15 16:49] LABS: *AMPHETAMINES SCREEN URINE NEGATIVE (NEGATIVE); *BENZODIAZEPINES SCREEN URINE NEGATIVE (NEGATIVE); *COCAINE SCREEN URINE PRESUMTIVE POSITIVE (NEGATIVE); METHADONE URINE SCREEN NEGATIVE (NEGATIVE); OPIATES URINE SCREEN NEGATIVE (NEGATIVE); PHENCYCLIDINE URINE SCREEN NEGATIVE (NEGATIVE)
[2019-04-15 16:50] LABS: CANNABINOID URINE SCREEN NEGATIVE (NEGATIVE)
[2019-04-15 16:51] LABS: PLATELET ESTIMATE NORMAL
[2019-04-15] MEDS ORDERED: CLONIDINE 0.1MG TABLET PO PRN (20:00)
[2019-04-15] MEDS ORDERED: MORPHINE SULFATE 2 MG/ML CPJ (NOT FOR IM USE) IV PRN (20:00)
[2019-04-15] MEDS ORDERED: DOCUSATE SODIUM 100MG CAPSULE PO PRN (20:00)
[2019-04-15] MEDS ORDERED: GUAIFENESIN 200MG/10ML SUGAR FREE UDC PO PRN (20:00)
[2019-04-15] MEDS ORDERED: NA PHOS,M-B/NA PHOS,DI-BA ENEMA 118ML PR PRN (20:00)
[2019-04-15] MEDS ORDERED: IPRATROPIUM/ALBUTEROL 0.5-3(2.5)MG/3ML NEB NEB PRN (20:00)
[2019-04-15] MEDS ORDERED: MAGNESIUM/ALUMINUM HYDROXIDE/SIMETHICONE 30ML UDC PO PRN (20:00)
[2019-04-15] MEDS ORDERED: DIPHENHYDRAMINE 50MG/ML VIAL IV PRN (20:00)
[2019-04-15] MEDS ORDERED: LORAZEPAM 2MG/ML CPJ IV PRN (20:00)
[2019-04-15] MEDS ORDERED: ACETAMINOPHEN 325MG TABLET PO PRN (20:00)
[2019-04-15] MEDS ORDERED: ONDANSETRON HCL 4MG/2ML INJ IV PRN (20:00)
[2019-04-15] MEDS ORDERED: HYDROCODONE/ACETAMINOPHEN 5/325MG TABLET PO PRN (20:00)
[2019-04-15 22:15] VITALS: BP 176/100
[2019-04-15] MEDS ORDERED: DEXTROSE 50% WATER 50ML SYRINGE IV PRN (22:15)
[2019-04-16 00:42] LABS: CHLORIDE 109 mEq/L (98-107)
[2019-04-16] MEDS ORDERED: ENOXAPARIN 30MG/0.3ML SYR SUBCUT SCH (02:00)
[2019-04-16 06:07] LABS: CHLORIDE 109 mEq/L (98-107)
[2019-04-16 06:09] LABS: EOSINOPHILS % 5.7 % (0.0-5.0); HEMATOCRIT. 35.5 % (42.0-52.0); HEMOGLOBIN. 11.9 g/dL (14.0-18.0); LYMPHOCYTES % 19.7 % (20.0-50.0); MEAN CORPUSCULAR HEMOGLOBIN 29.4 pg (28.0-32.0); MEAN CORPUSCULAR VOLUME 87.4 fL (80.0-94.0); MEAN PLATELET VOLUME 7.6 fl (7.4-10.4); MONOCYTES % 14.5 % (2.0-8.0); NEUTROPHILS % 59.1 % (40.0-76.0); PLATELET 229 x1000/uL (130-400); RED BLOOD CELL COUNT 4.06 mill/uL (4.7-6.1); RED CELL DISTRIBUTION WIDTH 17.4 % (11.6-14.6)
[2019-04-16 06:18] LABS: LDL CHOLESTEROL 64 mg/dL (5-100); T4 FREE 1.01 ng/dL (0.76-1.46)
[2019-04-16 06:20] LABS: HDL CHOLESTEROL 52 mg/dL (40-59)
[2019-04-16] MEDS: BLOOD SUGAR DIAGNOSTIC STRIP TEST SCH ×4 (07:51→21:07)
[2019-04-16] MEDS: INSULIN LISPRO 100 UNITS/ML SUBCUT SCH ×4 (07:51→21:07)
[2019-04-16 08:00] VITALS: BP 193/104
[2019-04-16] MEDS: LISINOPRIL 10MG TABLET PO SCH (09:55)
[2019-04-16] MEDS: ASPIRIN 81MG EC TABLET PO SCH (09:55)
[2019-04-16] MEDS: LINAGLIPTIN 5MG TABLET PO SCH (09:55)
[2019-04-16] MEDS: BUPROPION HCL 75MG TABLET PO SCH ×2 (09:55→21:06)
[2019-04-16] MEDS: AMLODIPINE 10MG TABLET PO SCH (09:56)
[2019-04-16] MEDS: CARVEDILOL 6.25 MG TABLET PO SCH ×2 (09:56→21:06)
[2019-04-16] MEDS: QUETIAPINE FUMARATE 25MG TABLET PO SCH (09:57)
[2019-04-16 12:00] VITALS: BP 195/104
[2019-04-16] MEDS: HYDRALAZINE HCL 50MG TABLET PO SCH ×2 (13:31→21:06)
[2019-04-16] MEDS: CALCIUM ACETATE 667MG CAPSULE PO SCH ×2 (13:31→18:10)
[2019-04-16 16:00] VITALS: BP 152/84
[2019-04-16 20:00] VITALS: BP 172/95
[2019-04-16] MEDS: ENOXAPARIN 30MG/0.3ML SYR SUBCUT SCH (21:05)
[2019-04-16] MEDS: TAMSULOSIN HCL 0.4MG SR CAPSULE PO SCH (21:05)
[2019-04-17 00:05] VITALS: BP 157/92
[2019-04-17 04:00] VITALS: BP 177/98
[2019-04-17] MEDS: HYDRALAZINE HCL 50MG TABLET PO SCH ×3 (05:55→21:20)
[2019-04-17] MEDS: BLOOD SUGAR DIAGNOSTIC STRIP TEST SCH ×4 (06:20→21:00)
[2019-04-17 06:57] LABS: HEMATOCRIT. 40.3 % (42.0-52.0); HEMOGLOBIN. 13.2 g/dL (14.0-18.0); MEAN CORPUSCULAR HEMOGLOBIN 28.9 pg (28.0-32.0); MEAN CORPUSCULAR VOLUME 88.6 fL (80.0-94.0); PLATELET 216 x1000/uL (130-400); RED BLOOD CELL COUNT 4.55 mill/uL (4.7-6.1); RED CELL DISTRIBUTION WIDTH 18.2 % (11.6-14.6)
[2019-04-17 08:00] VITALS: BP 159/90
[2019-04-17] MEDS: INSULIN LISPRO 100 UNITS/ML SUBCUT SCH ×4 (08:10→21:00)
[2019-04-17] MEDS: CALCIUM ACETATE 667MG CAPSULE PO SCH ×3 (09:48→17:19)
[2019-04-17] MEDS: ASPIRIN 81MG EC TABLET PO SCH (09:49)
[2019-04-17] MEDS: LISINOPRIL 10MG TABLET PO SCH (09:49)
[2019-04-17] MEDS: QUETIAPINE FUMARATE 25MG TABLET PO SCH (09:49)
[2019-04-17] MEDS: BUPROPION HCL 75MG TABLET PO SCH ×2 (09:50→21:20)
[2019-04-17] MEDS: CARVEDILOL 6.25 MG TABLET PO SCH ×2 (09:50→21:20)
[2019-04-17] MEDS: AMLODIPINE 10MG TABLET PO SCH (09:50)
[2019-04-17] MEDS: LINAGLIPTIN 5MG TABLET PO SCH (09:50)
[2019-04-17 11:28] LABS: PLATELET ESTIMATE NORMAL
[2019-04-17 11:55] VITALS: BP 133/87
[2019-04-17 16:00] VITALS: BP 140/79
[2019-04-17 20:00] VITALS: BP 145/79
[2019-04-17] MEDS: TAMSULOSIN HCL 0.4MG SR CAPSULE PO SCH (21:20)
[2019-04-17] MEDS: ENOXAPARIN 30MG/0.3ML SYR SUBCUT SCH (21:20)
[2019-04-18 00:16] VITALS: BP 131/65
[2019-04-18 04:02] VITALS: BP 158/86
[2019-04-18] MEDS: HYDRALAZINE HCL 50MG TABLET PO SCH (05:48)
[2019-04-18] MEDS: BLOOD SUGAR DIAGNOSTIC STRIP TEST SCH ×2 (05:53→12:07)
[2019-04-18 06:45] VITALS: BP 145/79
[2019-04-18 07:03] LABS: EOSINOPHILS % 6.1 % (0.0-5.0); HEMATOCRIT. 39.6 % (42.0-52.0); LYMPHOCYTES % 27.3 % (20.0-50.0); MEAN CORPUSCULAR VOLUME 88.5 fL (80.0-94.0); MEAN PLATELET VOLUME 8.1 fl (7.4-10.4); NEUTROPHILS % 51.6 % (40.0-76.0); PLATELET 193 x1000/uL (130-400); RED BLOOD CELL COUNT 4.48 mill/uL (4.7-6.1); RED CELL DISTRIBUTION WIDTH 18.3 % (11.6-14.6)
[2019-04-18 08:00] VITALS: BP 136/89
[2019-04-18] MEDS: INSULIN LISPRO 100 UNITS/ML SUBCUT SCH ×2 (08:10→12:07)
[2019-04-18] MEDS: CALCIUM ACETATE 667MG CAPSULE PO SCH (08:43)
[2019-04-18] MEDS: LINAGLIPTIN 5MG TABLET PO SCH (08:44)
[2019-04-18] MEDS: BUPROPION HCL 75MG TABLET PO SCH (08:44)
[2019-04-18] MEDS: ASPIRIN 81MG EC TABLET PO SCH (08:44)
[2019-04-18] MEDS: LISINOPRIL 10MG TABLET PO SCH (08:44)
[2019-04-18] MEDS: CARVEDILOL 6.25 MG TABLET PO SCH (08:44)
[2019-04-18] MEDS: AMLODIPINE 10MG TABLET PO SCH (08:44)
[2019-04-18] MEDS: QUETIAPINE FUMARATE 25MG TABLET PO SCH (08:44)
[2019-04-18 12:00] VITALS: BP 142/85
[2019-04-18] MEDS ORDERED: SODIUM POLYSTYRENE SULFONATE 15 G/60 ML BOT PO NR (13:00)
== END 2019-04-18 13:40 | disposition home or self-care (01) | DRG 52 ==
LOC: ER 14:57 → 7WST 18:57 → ENRESERV 21:03
PROVIDERS: ADMIT Internal Medicine; ATTEND Internal Medicine
PROC: 5A1D70Z Performance of Urinary Filtration, Intermittent, Less than 6 Hours Per Day (ICD-10-PCS; principal; 2019-04-16)
PROC: 5A1D70Z Performance of Urinary Filtration, Intermittent, Less than 6 Hours Per Day (ICD-10-PCS; 2019-04-17)
PROC: 5A1D70Z Performance of Urinary Filtration, Intermittent, Less than 6 Hours Per Day (ICD-10-PCS; 2019-04-18)
DX: G93.41 Metabolic encephalopathy (principal); E44.0 Moderate protein-calorie malnutrition; E11.22 Type 2 diabetes mellitus with diabetic chronic kidney disease; F20.9 Schizophrenia, unspecified; F14.10 Cocaine abuse, uncomplicated; I12.0 Hypertensive chronic kidney disease with stage 5 chronic kidney disease or end stage renal disease; I25.10 Atherosclerotic heart disease of native coronary artery without angina pectoris; J44.9 Chronic obstructive pulmonary disease, unspecified; N18.6 End stage renal disease; E86.0 Dehydration; Z99.2 Dependence on renal dialysis; Z68.20 Body mass index [BMI] 20.0-20.9, adult; Z79.899 Other long term (current) drug therapy
CPT/HCPCS: 36415; 71045; 80048; 80061; 80305; 80307; 80320; 81003; 82140; 82962; 84439; 84443; 84484; 93005; 96374; 99291; J1650; J1815; J2310; J7620; G0480

== ENCOUNTER 2019-07-25 19:26 | Emergency (ER) | payer MEDICARE, MEDICAID ==
[~2019-07-25] VITALS: Ht 167.6 cm; Wt 62.0 kg
[2019-07-25 22:43] LABS: BASOPHILS % 0.6 % (0.0-2.0); EOSINOPHILS % 3.8 % (0.0-5.0); HEMATOCRIT. 44.3 % (42.0-52.0); HEMOGLOBIN. 14.5 g/dL (14.0-18.0); LYMPHOCYTES % 14.7 % (20.0-50.0); MEAN CORPUSCULAR HEMOGLOBIN 29.4 pg (28.0-32.0); MEAN CORPUSCULAR VOLUME 89.6 fL (80.0-94.0); MEAN PLATELET VOLUME 8.4 fl (7.4-10.4); MONOCYTES % 12.7 % (2.0-8.0); NEUTROPHILS % 68.2 % (40.0-76.0); PLATELET 201 x1000/uL (130-400); RED BLOOD CELL COUNT 4.94 mill/uL (4.7-6.1); RED CELL DISTRIBUTION WIDTH 16.6 % (11.6-14.6)
[2019-07-25 22:50] LABS: CHLORIDE 99 mEq/L (98-107)
[2019-07-25] MEDS ORDERED: CLONIDINE 0.2MG TABLET PO ONE (23:30)
[2019-07-25] MEDS ORDERED: HYDROCODONE/ACETAMINOPHEN 5/325MG TABLET PO NR (23:30)
[2019-07-25] MEDS ORDERED: ONDANSETRON 4MG ODT PO ONE (23:30)
[2019-07-26 00:45] VITALS: BP 148/97
== END 2019-07-26 02:03 | disposition home or self-care (01) ==
LOC: ER 19:44
DX: R07.89 Other chest pain (principal); E11.22 Type 2 diabetes mellitus with diabetic chronic kidney disease; I12.0 Hypertensive chronic kidney disease with stage 5 chronic kidney disease or end stage renal disease; N18.6 End stage renal disease; J44.9 Chronic obstructive pulmonary disease, unspecified; F17.210 Nicotine dependence, cigarettes, uncomplicated; F20.9 Schizophrenia, unspecified; Z79.82 Long term (current) use of aspirin; Z99.2 Dependence on renal dialysis
CPT/HCPCS: 36415; 71045; 80053; 83880; 84484; 85025; 93005; 99284; Q0162

== ENCOUNTER 2019-11-14 13:54 | Emergency (ER) | payer MEDICARE, OTHER ==
[~2019-11-14] VITALS: Ht 172.7 cm; Wt 62.0 kg
[2019-11-14 15:17] LABS: HEMOGLOBIN. 9.5 g/dL (14.0-18.0); MEAN CORPUSCULAR HEMOGLOBIN 30.2 pg (28.0-32.0); MEAN CORPUSCULAR VOLUME 89.3 fL (80.0-94.0); MEAN PLATELET VOLUME 7.9 fl (7.4-10.4); PLATELET 173 x1000/uL (130-400); RED BLOOD CELL COUNT 3.14 mill/uL (4.7-6.1); RED CELL DISTRIBUTION WIDTH 15.4 % (11.6-14.6)
[2019-11-14 15:24] LABS: PROTHROMBIN TIME 10.6 sec (9.6-11.0)
[2019-11-14 15:25] LABS: CHLORIDE 105 mEq/L (98-107)
[2019-11-14 15:31] LABS: PHOSPHORUS 5.1 mg/dL (2.5-4.9)
[2019-11-14 15:42] LABS: PLATELET ESTIMATE NORMAL
[2019-11-14] MEDS ORDERED: DEXTROSE 50% WATER 50ML SYRINGE IV NR (16:15)
[2019-11-14] MEDS ORDERED: INSULIN REGULAR (HUMULIN R) 300UNITS/3ML IV NR (16:15)
[2019-11-14] MEDS ORDERED: CALCIUM GLUCONATE 100MG/ML 10ML VIAL IV ONE (17:00)
[2019-11-14] MEDS ORDERED: SODIUM POLYSTYRENE SULFONATE 15 G/60 ML BOT PO NR (17:00)
[2019-11-14 18:49] LABS: CLARITY URINE CLEAR (CLEAR); COLOR URINE YELLOW (YELLOW); KETONES URINE NEGATIVE (NEGATIVE); LEUKOCYTE ESTERASE URINE NEGATIVE (NEGATIVE); NITRITE URINE NEGATIVE (NEGATIVE); OCCULT BLOOD URINE NEGATIVE (NEGATIVE); PROTEIN URINE 2+ (NEGATIVE); SPECIFIC GRAVITY URINE 1.012 (1.005-1.030); UROBILINOGEN URINE 0.2 E.U./dL (0.2-1.0)
[2019-11-14 22:59] VITALS: BP 135/80
== END 2019-11-14 23:02 | disposition short-term general hospital (02) ==
LOC: ER 13:54 → EDBEDREQTM 16:45 → EDBEDREQ 16:45 → CANBEDREQ 17:01 → EDBEDREQ 21:38 → ER 23:02 → CANBEDREQ 23:29
DX: N18.6 End stage renal disease (principal); E87.5 Hyperkalemia; F10.10 Alcohol abuse, uncomplicated; Y90.9 Presence of alcohol in blood, level not specified; Z99.2 Dependence on renal dialysis; Z91.15 Patient's noncompliance with renal dialysis; Z79.82 Long term (current) use of aspirin
CPT/HCPCS: 36415; 71045; 80053; 81003; 83735; 83880; 84100; 84484; 85025; 85610; 93005; 96374; 96375; 99291; J0610; J1815

== ENCOUNTER 2019-11-14 23:14 | Emergency (ER) | payer MEDICARE, OTHER ==
[~2019-11-14] VITALS: Ht 172.7 cm; Wt 61.0 kg
[2019-11-14 23:23] VITALS: BP 145/72
== END 2019-11-14 23:51 | disposition home or self-care (01) ==
LOC: ER 23:14
DX: N18.6 End stage renal disease (principal); Z99.2 Dependence on renal dialysis; Z79.82 Long term (current) use of aspirin
CPT/HCPCS: 99281